=== PATIENT | female | born 1970 | race Hispanic/Latino ===

== ENCOUNTER 2017-02-22 06:19 | Day surgery (SDC) | payer OTHER ==
[2017-02-01 07:58] VITALS: BMI 21.7
[2017-02-22] MEDS ORDERED: Bupivacaine 0.5% Inj(30mL) ONE (07:13)
[2017-02-22] MEDS ORDERED: Propofol 10 mg/ml Inj (20 ML) ONE (07:46)
[2017-02-22] MEDS ORDERED: Midazolam 2 MG/2 ML VIAL ONE (07:46)
[2017-02-22] MEDS ORDERED: Bacitracin 500 Units/gm Oint Foilpak UD ONE (08:36)
[2017-02-22] MEDS ORDERED: HYDROmorphone 0.5 mg/0.5 ml ISec IVP PRN (08:48)
[2017-02-22] MEDS ORDERED: Sodium Chloride 0.9% 1,000 ML IV SCH (09:00)
--- NOTE | 2017-02-22 09:09 | PCM.SURG1 ---
Surgeon's Initial Post Op Note - Surgeon's Notes Surgeon: Paulino Culinary Chef: PGY3 Type of Anesthesia: General Endo Pre-Operative Diagnosis: R breast fibroadenoma, mastodynia Operative Findings: R breast mass Post-Operative Diagnosis: R breast fibroadenoma, mastodynia, alopecia Operation Performed: R partial mastectomy, Scalp biopsy Specimen/Specimens Removed: R breast mass, scalp biopsy, wound culture Estimated Blood Loss: EBL {In ML}: 10 Blood Products Given: N/A Drains Used: [place] (red rubber catheter drain, R breast) Post-Op Condition: Good Date of Surgery/Procedure: 02/22/17 Time of Surgery/Procedure: 07:30
[2017-02-22] MEDS ORDERED: HYDROmorphone 0.5 mg/0.5 ml ISec ONE (09:32)
[2017-02-22] MEDS ORDERED: HYDROmorphone 0.5 mg/0.5 ml ISec IVP ONE (09:33)
[2017-02-22 10:15] VITALS: BP 130/61; PULSE 54; RESP 20; TEMP 97.7; O2SAT 98
--- NOTE | 2017-03-10 15:08 | PCM.OP ---
Operative Report - Operative Report Date of Surgery/Procedure: 02/22/17 Time of Surgery/Procedure: 00:00 Surgeon: Antony Bob MD Mortgage Advisor: Damon Fuchs DO PGY2 Anesthesia/Sedation: Anesthesiology: Dr. Almanza Pre-Operative Diagnosis: Right Breast Fibroadenoma - fibrocystic disease ( mastodynia). Alopecia. 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 She sounded like every imaging study was found to have only benign disease. One of these findings was a fibroadenoma and another was enlarging new fibrocystic breast disease. The patient is completely unsatisfied with all the recommendations that she's had so far by surgeons and requests this surgeon to remove the painful area. . The patient was initially seen by Dr. Rema Rocha and this patient has a long history of extreme anxiety regarding her medical conditions which in the past have included pulminary fibrosis, chronic back pain (implanted stimulator), and chest wall pain relieved with a local injection. . Extensive discussion was held with the patient after review of all her imaging studies explaining that she does not have a malignancy and does not need to have her breast removed, only a partial removal of the ductal system including the fibroadenoma. The lymph node in the axilla is totally benign in appearance and is less than 1 cm in size and is only mildly in tender and is not in any way suspicious. Multiple phone calls were held with the patient prior to surgery. Reassurance was given at each time regarding this situation. . Patient has been advised that her pain will dissapear after the procedure and she will not have to have further treatment following this abd has been completely reassured of her anxieties in this issue at this time. Operative Findings: incarc hernia Procedure/Operation Description: Right Partial Mastectomy. Scalp Biopsy. Patient is brought to the operating room and identified by her wristband. She undergoes time out procedure and confirmation of the surgical site marking on the right breast just above the areola from 9 o'clock to 3 o'clock cephalad. . Following the induction of general anesthesia and insertion of an intralaryngeal mask, sequential compression devices were placed on the patient' s lower extremities. The right breast and chest wall are prepped with hibiclens chlorhexidine preparation of the patient. Upper areola edge in infiltrated with bupivacaine 0.5% ( 18 ccs). Circumareolar incision is made sharp dissection through subcutaneous tissues down breast tissue below. Wide local incision made of anterior breast tissue and ductal system point of pt discomfort. Hemostasis is contained with Electrocoagulation Caudery. Area is widen removing removing fibrocystic disease with extensive ductal distention and engorgement. Cultures taken of duct with creamy whitish content. Specimen completely remove area palpated & absent of any lesion. Specimen is placed in formon for permanent section analysis. Breast incision is review by surgeon's index finger, no additional lesions are encountered at particular point. . Normal Saline solution will be used until hemostasis contained with ECC. The skin is closed with subcutaneous with 3-0 prolene absorbed sutures, as well as 0 silk sutures skin stapler #8 red rubber catheter inserted into the incision secured to the split dressing with skin camden will be removed one 1st postoperative day by pt. Drain will facilitate any accumulation fluids and improve the wound healing. Dry dressing is placed over pts head with attention to the scalp. . Pt complains abouts hair loss (6 months) and requests Histopathologic skin biopsy to evaluation. Scalp in midline vertex and prepared with cleans infiltrated with bupivacaine skin biopsy taken tissue removed for pathologic evaluation. Betadine ointment inserted into incision pt awaken and transferred to recovery in good condition. . entry level assistant manager was present during entire procedure Estimated Blood Loss: Minimal Blood Replaced: 0 Sponge/Instrument Count: ok Drains: no Complications: None Specimen: hernia-omentum Discharge & Condition: pt awaken and transferred to recovery in good condition.
== END 2017-02-22 11:45 | disposition home or self-care (01) ==
LOC: SDS 06:19
PROVIDERS: ATTEND Surgery
DX: D24.1 Benign neoplasm of right breast (principal); J43.9 Emphysema, unspecified; J84.10 Pulmonary fibrosis, unspecified; L65.9 Nonscarring hair loss, unspecified; N64.4 Mastodynia; N60.11 Diffuse cystic mastopathy of right breast; F41.9 Anxiety disorder, unspecified; G89.29 Other chronic pain; M54.9 Dorsalgia, unspecified
CPT/HCPCS: 11100; 19301; 36415; 86850; 86900; 87070; 87075; 88305; 88307; J0690; J1100; J1170; J2001; J2250; J2405; J2704; J2765; J3010; J7040; J7120

== ENCOUNTER 2017-04-24 09:11 | Observation (INO) | payer OTHER ==
--- NOTE | 2017-04-24 10:21 | ED PDOC ---
Arrival/HPI - General Chief Complaint: Chest Pain Time Seen by Provider: 04/24/17 09:12 Historian: Patient - History of Present Illness Narrative History of Present Illness (Text): 04/24/17 09:45 Patient is a 47 year old female presents to the Emergency Department complaining of left sided chest pain. Patient states that two nights ago she awoke with "squeezing" sensation in her left chest. Pain was not pleuritic. Pain did not radiate to neck or arm or back. She went to see her PMD Dr. Rocha that day, reportedly she had EKG performed and pain resolved. She states that this morning she again felt left sided chest discomfort, similar to 2 days ago. She denies associated shortness of breath. Symptoms occurred at rest. Denies headache. Denies neck pain. Denies back pain. Denies abdominal pain. Denies nausea or vomiting or sweats. Denies leg pain or swelling. She denies ever having similar symptoms in the past. PMD: Dr. Rocha Time/Duration: Other (last night) Symptom Onset: Sudden Symptom Course: Unchanged Quality: Other (squeezing pain) Context: Home Past Medical History - Provider Review Nursing Documentation Reviewed: Yes - Infectious Disease Hx of Infectious Diseases: None - Tetanus Immunization Tetanus Immunization: Up to Date - Reproductive Menopause: No - Cardiac Hx Pacemaker: No - Pulmonary Hx Asthma: Yes Other/Comment: pulmonary fibrosis - Neurological Hx Paralysis: No - HEENT Hx HEENT Disorder: No - Renal Hx Renal Disorder: No - Endocrine/Metabolic Hx Endocrine Disorders: No Hx Diabetes Mellitus Type 2: Yes Other/Comment: Steroid induced hyperglycemia. - Hematological/Oncological Hx Blood Transfusions: No Hx Blood Transfusion Reaction: No - Integumentary Hx Dermatological Disorder: No - Musculoskeletal/Rheumatological Hx Musculoskeletal Disorders: No ("BULGING RIBS") - Gastrointestinal Hx Gastroesophageal Reflux: Yes - Genitourinary/Gynecological Hx Genitourinary Disorders: No Other/Comment: bladder neuro stimulator - Psychiatric Hx Psychophysiologic Disorder: Yes Hx Anxiety: Yes Hx Emotional Abuse: No Hx Post Traumatic Stress Disorder: Yes (from misdiagnosed lung dis) Hx Physical Abuse: No Hx Substance Use: No Other/Comment: PT was told of mis diagnosed lung disease on 09/2015. She had been tx for it since 1998 and had chemo on 1999. - Surgical History Other/Comment: right breast mastectomy - Anesthesia Hx Anesthesia: Yes Hx Anesthesia Reactions: Yes (NAUSEA, STATES NEEDS ZOFRAN) Hx Malignant Hyperthermia: No - Suicidal Assessment Feels Threatened In Home Enviroment: No Family/Social History - Physician Review Nursing Documentation Reviewed: Yes Family/Social History: CAD/IN (granparents and aunt) Smoking Status: Never Smoked Hx Alcohol Use: No Hx Substance Use: No Hx Substance Use Treatment: No Allergies/Home Meds Allergies/Adverse Reactions: Allergies No Known Allergies Allergy (Verified 04/24/17 09:29) Home Medications: Home Meds Medication Instructions Recorded Confirmed Escitalopram [Lexapro] 10 mg PO DAILY 09/21/16 04/24/17 busPIRone [Buspar] 10 mg PO DAILY 09/21/16 04/24/17 Lansoprazole [Prevacid] 30 mg PO DAILY 04/24/17 04/24/17 Review of Systems - Review of Systems Constitutional: absent: Fatigue, Fevers Eyes: absent: Vision Changes ENT: absent: Hearing Changes Respiratory: absent: SOB, Cough Cardiovascular: Chest Pain (left-side non-pleuritic chest pain), Palpitations. absent: Edema, BECERRA Gastrointestinal: absent: Abdominal Pain, Food Intolerance (heavy swallowing of food) Genitourinary Female: absent: Dysuria, Frequency Musculoskeletal: absent: Back Pain, Neck Pain Skin: absent: Rash Neurological: absent: Headache, Dizziness, Focal Weakness Psychiatric: Anxiety. absent: Depression, Suicidal Ideation Physical Exam - Physical Exam Narrative Physical Exam (Text): 04/24/17 09:49 Head: Atraumatic. Normocephalic. Eyes: PERRL. EOMI. Conjunctivae are not pale. ENT: Mucous membranes are moist and intact. Oropharynx is clear and symmetric. Neck: Supple. Full ROM. No JVD. No lymphadenopathy. No meningeal signs. Cardiovascular: Regular rate. Regular rhythm. No murmurs, rubs, or gallops. Distal pulses are 2+ and symmetric. No palpable chest wall pain. Pulmonary/Chest: No evidence of respiratory distress. Clear to auscultation bilaterally. No wheezing, rales or rhonchi. Abdominal: Soft and non-distended. Mild epigastric discomfort. No pulsatile masses. Negative Quiles's sign. No rebound, guarding, or rigidity. No organomegaly. Good bowel sounds. Back: No CVA tenderness. Extremities: No edema. No cyanosis. No clubbing. Full range of motion in all extremities. No calf tenderness. NV intact. Full range of motion of hip, knee and ankle. Skin: Skin is warm and dry. No petechiae. No purpura. No vesicular rash. Neurological: Alert, awake, and oriented to person, place, time, and situation. Normal speech. Motor and sensory intact. Psychiatric: Anxiety, no suicidal ideation expressed. Vital Signs Reviewed: Yes Vital Signs Temp Pulse Pulse Resp BP BP Pulse Ox 04/24/17 09:50 67 158/62 H 04/24/17 09:30 97.9 F 57 L 16 136/59 L 100 04/24/17 09:17 98.2 F 65 19 106/65 98 Temperature: Afebrile Blood Pressure: Normal Pulse: Regular Respiratory Rate: Normal Appearance: Positive for: Well-Appearing Pain Distress: Mild Mental Status: Positive for: Alert and Oriented X 3 Medical Decision Making ED Course and Treatment: 04/24/17 09:53 Impression: 47 year old female with left-side chest discomfort intermittent for past 2-3 days. Differential Diagnosis included but are not limited to: CAD vs. Reflux vs. Anxiety Plan: -- EKG -- Chest X-ray -- Labs -- Reassess and disposition Prior Visits: Notes and results from previous visits were reviewed. Patient was last seen in the emergency department on 03/24/2016 FOR acute onset dizziness and lethargy. Patient was admitted. Progress Notes: Patient's past imaging studies including chest xray and prior ct chest were reviewed. She has strong family history of cad/mi as per her history. Initial EKG unremarkable with no acute st elevations noted. Pain occurred at rest, currently not worse with exertion. Nonsmoker. No calf pain. No recent travel. Denies OCPs. Denies prolonged immobilization. Pain not pleuritic. No hypoxia. BP and pulse equal in both upper extremities. No calf pain noted. 04/24/2017 10:42 Chest X-ray FINDINGS: LUNGS: No active pulmonary disease. PLEURA: No significant pleural effusion identified, no pneumothorax apparent. CARDIOVASCULAR: Normal. OSSEOUS STRUCTURES: Dextroscoliosis unchanged VISUALIZED UPPER ABDOMEN: Normal. OTHER FINDINGS: None. IMPRESSION: No active disease. Dictator : David Barrios MD 04/24/17 11:59 Patient still experiencing persistent mild chest discomfort. EKG and first set of cardiac enzymes unremarkable. Due to strong family history of CAD/IN and persistent pain, patient will be admitted to telemetry observation. Case discussed with Dr. Colon whom is covering for her PMD (Dr. Rocha). Initial troponin unremarkable. Treatment plan reviewed with patient, agreeable to observation telemetry admission. - Lab Interpretations Lab Results: 04/24/17 10:25 04/24/17 10:25 Lab Results 04/24/17 10:25: Sodium 140, Potassium 4.6, Chloride 105, Carbon Dioxide 27, Anion Gap 13, BUN 14, Creatinine 0.6, Est GFR ( Amer) > 60, Est GFR (Non- Af Amer) > 60, Random Glucose 109, Calcium 9.3, Total Bilirubin 0.8, AST 23, ALT 27, Alkaline Phosphatase 85, Lactate Dehydrogenase 369, Total Creatine Kinase 47, Troponin I < 0.01, Total Protein 7.1, Albumin 4.3, Globulin 2.8, Albumin/Globulin Ratio 1.5 04/24/17 10:25: PT 10.1, INR 0.94, APTT 26.2 04/24/17 10:25: WBC 5.2 D, RBC 4.71, Hgb 14.8, Hct 42.7, MCV 90.7, MCH 31.4, MCHC 34.7, RDW 12.3, Plt Count 264, MPV 10.5, Gran % 62.0, Lymph % (Auto) 28.7, Posey % (Auto) 7.2 H, Eos % (Auto) 1.7, Baso % (Auto) 0.4, Gran # 3.20, Lymph # 1.5, Posey # 0.4, Eos # 0.1, Baso # 0.02 I have reviewed the lab results: Yes - RAD Interpretation Radiology Orders: 04/24/17 09:53 CHEST PORTABLE [RAD] Stat - EKG Interpretation EKG Interpretation (Text): EKG at 0932 sinus bradycardia rate of [address] elevations Interpreted by ED Physician: Yes Type: 12 lead EKG - Medication Orders Current Medication Orders: Acetaminophen (Tylenol 325mg Tab) 650 mg PO Q6H PRN PRN Reason: Pain, Mild (1-3) Buspirone HCl (Buspar) 10 mg PO HS XIOMARA PRN Reason: Protocol Escitalopram Oxalate (Lexapro) 10 mg PO DAILY XIOMARA Oxycodone/Acetaminophen (Percocet 10/325 Mg Tab) 1 tab PO Q6H PRN PRN Reason: Pain, moderate (4-7) Pantoprazole Sodium (Protonix Ec Tab) 40 mg PO ACB XIOMARA Discontinued Medications Aspirin (Aspirin Chewable) 81 mg PO STAT STA Stop: 04/24/17 12:04 Last Admin: 04/24/17 12:53 Dose: 81 mg Buspirone HCl (Buspar) 10 mg PO DAILY XIOMARA PRN Reason: Protocol Last Admin: 04/24/17 17:14 Dose: Not Given Non-Admin Reason: Patient Refused Famotidine (Pepcid) 20 mg IVP STAT STA Stop: 04/24/17 12:04 Last Admin: 04/24/17 12:55 Dose: - Scribe Statement The provider has reviewed the documentation as recorded by the Ana Og Provider Scribe Attestation: All medical record entries made by the Cristinoibadriane were at my direction and personally dictated by me. I have reviewed the chart and agree that the record accurately reflects my personal performance of the history, physical exam, medical decision making, and the department course for this patient. I have also personally directed, reviewed, and agree with the discharge instructions and disposition. Disposition/Present on Arrival - Present on Arrival Any Indicators Present on Arrival: Yes History of DVT/PE: No History of Uncontrolled Diabetes: Yes Urinary Catheter: No History of Decub. Ulcer: No History Surgical Site Infection Following: None - Disposition Have Diagnosis and Disposition been Completed?: Yes Diagnosis: Chest pain Disposition: HOSPITALIZED Disposition Time: 11:05 Patient Plan: Admission, Observation, Telemetry Patient Problems: Current Active Problems Problem Status Onset Chest pain Acute Condition: FAIR
--- NOTE | 2017-04-24 10:44 | RAD ---
HISTORY: chest pain COMPARISON: Comparison made with chest radiograph and CT scan chest dated 02/01/2017 and 03/10/2017 respectively FINDINGS: LUNGS: No active pulmonary disease. PLEURA: No significant pleural effusion identified, no pneumothorax apparent. CARDIOVASCULAR: Normal. OSSEOUS STRUCTURES: Dextroscoliosis unchanged VISUALIZED UPPER ABDOMEN: Normal. OTHER FINDINGS: None. IMPRESSION: No active disease.
[2017-04-24 10:47] LABS: ALB/GLOB RATIO 1.5 (1.1-1.8); ALKALINE PHOSPHATASE 85 U/L (38-133); ALT/SGPT 27 U/L (7-56); AST/SGOT 23 U/L (15-39); BASO # 0.02 K/mm3 (0.0-2.0); BASO % 0.4 % (0.0-3.0); BILIRUBIN,TOTAL 0.8 mg/dL (0.2-1.3); BLOOD UREA NITROGEN 14 mg/dL (7-21); CALCIUM 9.3 mg/dL (8.4-10.5); CARBON DIOXIDE 27 mmol/L (21-33); CHLORIDE 105 mmol/L (98-107); EOS # 0.1 (0.0-0.7); EOS % 1.7 % (1.5-5.0); GFR AFRICAN-AMERICAN > 60; GLUCOSE,RANDOM 109 mg/dL (70-110); GRAN # 3.2 (1.4-6.5); HEMATOCRIT 42.7 % (36.0-48.0); LYMPH # 1.5 (1.2-3.4); LYMPH % 28.7 % (22.0-35.0); MEAN CELL VOLUME 90.7 fl (80.0-105.0); MEAN CORPUSCULAR HEMOGLOBIN 31.4 pg (25.0-35.0); MEAN CORPUSCULAR HGB CONC 34.7 g/dl (31.0-37.0); MEAN PLATELET VOLUME 10.5 fl (7.0-11.0); MONO # 0.4 (0.1-0.6); MONO % 7.2 % (1.0-6.0); POTASSIUM 4.6 mmol/L (3.6-5.0); RED CELL DISTRIBUTION WIDTH 12.3 % (11.5-14.5); SODIUM 140 mmol/L (132-148); TOTAL PROTEIN 7.1 g/dL (5.8-8.3); WHITE BLOOD COUNT 5.2 10^3/ul (4.5-11.0)
[2017-04-24 10:49] LABS: INR 0.94 (0.93-1.08); PARTIAL THROMBOPLASTIN TIME 26.2 Seconds (23.7-30.8)
[2017-04-24 10:57] LABS: TROPONIN I < 0.01 ng/mL
[2017-04-24 15:28] VITALS: BMI 20.7
[2017-04-24] MEDS ORDERED: Oxycodone/Acetaminophen 10/325 mg Tab PO PRN (16:34)
--- NOTE | 2017-04-24 16:50 | CP.PCM.HP ---
History of Present Illness - History of Present Illness History of Present Illness: Ms. Parker is a 47 year old female who presented to ED with left sided chest pain. No radiation. She saw her PCP Dr. Rocha who advised her cardiac consultation and cardiac stress test. She was not able to get it done yet. She has history of anxiety and PTSD. She had partial right sided mastectomy for benign lesions. No abdominal pain. Present on Admission - Present on Admission Any Indicators Present on Admission: No Review of Systems - Constitutional Constitutional: As Per HPI - EENT Eyes: As Per HPI. absent: Blind Spots, Blurred Vision, Change in Vision, Decreased Night Vision, Diplopia, Discharge, Dry Eye, Exophthalmos, Floaters, Irritation, Itchy Eyes, Loss of Peripheral Vision, Pain, Photophobia, Requires Corrective Lenses, Sees Flashes, Spots in Vision, Tunnel Vision, Other Visual Disturbances, Loss of Vision, Other Ears: absent: As Per HPI, Decreased Hearing, Ear Discharge, Ear Pain, Tinnitus, Abnormal Hearing, Disequilibrium, Dizziness, Other Nose/Mouth/Throat: absent: As Per HPI, Epistaxis, Nasal Congestion, Nasal Discharge, Nasal Obstruction, Nasal Trauma, Nose Pain, Post Nasal Drip, Sinus Pain, Sinus Pressure, Bleeding Gums, Change in Voice, Dental Pain, Dry Mouth, Dysphagia, Halitosis, Hoarsness, Lip Swelling, Mouth Lesions, Mouth Pain, Odynophagia, Sore Throat, Throat Swelling, Tongue Swelling, Facial Pain, Neck Pain, Neck Mass, Other - Breasts Breasts: As Per HPI - Cardiovascular Cardiovascular: As Per HPI - Respiratory Respiratory: absent: As Per HPI, Cough, Dyspnea, Hemoptysis, Dyspnea on Exertion , Wheezing, Snoring, Stridor, Pain on Inspiration, Chest Congestion, Excessive Mucous Production, Change in Mucous Color, Pain with Coughing, Other - Gastrointestinal Gastrointestinal: absent: As Per HPI, Abdominal Pain, Belching, Bloating, Change in Bowel Habits, Change in Stool Character, Coffee Ground Emesis, Constipation, Cramping, Diarrhea, Dyspepsia, Dysphagia, Early Satiety, Excessive Flatus, Fecal Incontinence, Heartburn, Hematemesis, Hematochezia, Loose Stools, Melena, Nausea, Odynophagia, Temesmus, Vomiting, Other - Genitourinary Genitourinary: absent: As Per HPI, Change in Urinary Stream, Difficulty Urinating, Dysuria, Flank Pain, Hematuria, Pyuria, Nocturia, Urinary Incontinence, Urinary Frequency, Urinary Hesitance, Urinary Urgency, Voiding Freq/Small Amts, Freq UTI, Hx Renal/Bladder Calculi, Hx /Renal Surgery, Bladder Distension, Other - Menstruation Menstruation: absent: As Per HPI, Amenorrhea, Amenorrhea/ Control, Currently Menstual, Cycle <21 Days, Cycle >35 Days, Cycle Variable, Menses 1-7 Days, Menses >/= 8 Days, Menses Variable, Cycle > 4 Weeks Between, No Menses for 6 Months, Heavy Menses, Light Menses, Normal Menses, Spotting Between Cycles , S/P Hysterectomy, Menopausal, Post Menopausal, Premenarche, Abnormal Vaginal Bleeding, Dysmenorrhea, Other - Musculoskeletal Musculoskeletal: absent: As Per HPI, Abnormal Gait, Arthralgias, Atrophy, Back Pain, Deformity, Joint Swelling, Limited Range of Motion, Loss of Height, Muscle Cramps, Muscle Weakness, Myalgias, Neck Pain, Numbness, Radiating Pain into Limb, Stiffness, Tingling, Other - Integumentary Integumentary: absent: As Per HPI, Acne, Alopecia, Bleeding Lesions, Change in Hair, Change in Nails, Change in Pigmentation, Changing Lesions, Dry Skin, Erythema, Furuncle, Hirsutism, Lesions, New Lesions, Non-Healing Lesions, Photosensitivity, Pruritus, Rash, Skin Pain, Skin Ulcer, Sores, Striae, Swelling , Unusual Bruising, Wounds, Jaundice, Other - Neurological Neurological: absent: As Per HPI, Abnormal Gait, Abnormal Hearing, Abnormal Movements, Abnormal Speech, Behavioral Changes, Burning Sensations, Confusion, Convulsions, Disequilibrium, Dizziness, Numbness, Focal Weakness, Frequent Falls , Headaches, Lack of Coordination, Loss of Vision, Memory Loss, Paresthesias, Radicular Pain, Restless Legs, Sensory Deficit, Syncope, Tingling, Tremor, Vertigo, Weakness, Other Visual Disturbances, Other - Psychiatric Psychiatric: As Per HPI - Endocrine Endocrine: absent: As Per HPI, Change in Body Appearance, Change in Libido, Cold Intolorance, Deepening of Voice, Excessive Sweating, Fatigue, Flushing, Heat Intolorance, Increase in Ring/Shoe/Hat Size, Palpitations, Polydipsia, Polyphagia, Polyuria, Other - Hematologic/Lymphatic Hematologic: As Per HPI Past Patient History - Infectious Disease Hx of Infectious Diseases: None - Tetanus Immunizations Tetanus Immunization: Up to Date - Past Medical History & Family History Past Medical History?: Yes Past Family History: Reviewed and not pertinent - Past Social History Smoking Status: Never Smoked - CARDIAC Hx Pacemaker: No - PULMONARY Hx Asthma: No (denies) Other/Comment: diagnosed lung disease (pulmo fibrosis) in 1998; found out that it was a misdiagnosis 09/2015 - NEUROLOGICAL Hx Paralysis: No - HEENT Other/Comment: left eye visual impairment - RENAL Hx Chronic Kidney Disease: No - ENDOCRINE/METABOLIC Other/Comment: steroid-induced hyperglycemia - HEMATOLOGICAL/ONCOLOGICAL Hx Cancer: (h/o right breast partial mastectomy) Hx Chemotherapy: Yes (1999) - INTEGUMENTARY Hx Dermatological Problems: No - MUSCULOSKELETAL/RHEUMATOLOGICAL Hx Falls: No - GASTROINTESTINAL Hx Gastroesophageal Reflux: Yes - GENITOURINARY/GYNECOLOGICAL Hx Hematuria: Yes Hx Urinary Tract Infection: Yes - PSYCHIATRIC Hx Anxiety: Yes Hx Depression: Yes Hx Panic Symptoms: Yes (Panic Disorder) Hx Post Traumatic Stress Disorder: Yes Hx Substance Use: No - SURGICAL HISTORY Hx Hysterectomy: Yes Hx Mastectomy: Yes (right breast partial mastectomy) - ANESTHESIA Hx Anesthesia: Yes Hx Anesthesia Reactions: Yes (NAUSEA, STATES NEEDS ZOFRAN) Hx Malignant Hyperthermia: No Meds Allergies/Adverse Reactions: Allergies Allergy/AdvReac Type Severity Reaction Status Date / Time No Known Allergies Allergy Verified 04/24/17 09:29 Physical Exam - Constitutional Appears: Well, Non-toxic - Head Exam Head Exam: ATRAUMATIC, NORMAL INSPECTION, NORMOCEPHALIC - Eye Exam Eye Exam: Normal appearance - ENT Exam ENT Exam: absent: Mucous Membranes Dry, Mucous Membranes Moist, Normal Exam, Normal External Ear Exam, Normal Oropharynx, TM's Normal Bilaterally - Neck Exam Neck exam: Positive for: Normal Inspection - Respiratory Exam Respiratory Exam: Clear to Auscultation Bilateral, NORMAL BREATHING PATTERN - Cardiovascular Exam Cardiovascular Exam: REGULAR RHYTHM, +S1, +S2 - GI/Abdominal Exam GI & Abdominal Exam: Normal Bowel Sounds - Extremities Exam Extremities exam: Positive for: normal inspection - Psychiatric Exam Psychiatric exam: Normal Affect, Normal Mood - Skin Skin Exam: Dry, Intact, Normal Color Results - Vital Signs Recent Vital Signs: Last Vital Signs Temp 98.2 F 04/24/17 15:04 Pulse 63 04/24/17 15:04 Resp 18 04/24/17 15:04 BP 142/50 L 04/24/17 15:04 Pulse Ox 100 04/24/17 09:30 - Labs Result Diagrams: 04/24/17 10:25 04/24/17 10:25 Assessment & Plan - Assessment and Plan (Free Text) Plan: 1. Chest pain left side : admit tele. cardiac enzymes monitoring . Cardiology consult Dr. Howard. EKG normal. First set cardiac enzymes normal. protonix daily. 2. Anxiety : lexapro 10 mg daily, 3. serial ardiac enzymes ordered. 4. Heme : monocytosis ; Hb/hct stable. 5. Renal : BUN, creatinine normal. discharge planning for tomorrow.
[2017-04-24 17:42] LABS: TROPONIN I < 0.01 ng/mL
--- NOTE | 2017-04-24 21:05 | CARD ---
APPROVED REPORT EKG Measurement Heart [id number] <Conclusion> Sinus bradycardia Otherwise normal ECG
--- NOTE | 2017-04-24 21:42 | CP.PCM.PN ---
Subjective - Date & Time of Evaluation Date of Evaluation: 04/24/17 Time of Evaluation: 21:51 - Subjective Subjective: Patient was seen at bedside. Has no complaints now. Had heaviness in chest a few minutes ago 11/05. Now 0. Had no other complaints. She had EKG done and I was called to read this EKG. EKG shows Sinus bradycardia(Borderline) not significantly different than previous EKG. Medical record was reviewed. This 47 year old woman was admitted with left sided chest pain. Has PMH of PTSD, anxiety, steroid induced hyperglycemia, misdiagnosis of pulmonary fibrosis, right breast partial mastectomy, left eye visual impairment. Objective - Vital Signs/Intake and Output Vital Signs (last 24 hours): Temp Pulse Resp BP Pulse Ox 98.7 F 62 20 128/61 100 04/24/17 17:32 04/24/17 18:00 04/24/17 17:32 04/24/17 17:32 04/24/17 09:30 - Medications Medications: Current Medications Acetaminophen (Tylenol 325mg Tab) 650 mg PO Q6H PRN PRN Reason: Pain, Mild (1-3) Buspirone HCl (Buspar) 10 mg PO HS XIOMARA PRN Reason: Protocol Escitalopram Oxalate (Lexapro) 10 mg PO DAILY XIOMARA Oxycodone/Acetaminophen (Percocet 10/325 Mg Tab) 1 tab PO Q6H PRN PRN Reason: Pain, moderate (4-7) Pantoprazole Sodium (Protonix Ec Tab) 40 mg PO ACB XIOMARA - Labs Labs: PT 10.1 Seconds (9.9-11.8) 04/24/17 10:25 INR 0.94 (0.93-1.08) 04/24/17 10:25 APTT 26.2 Seconds (23.7-30.8) 04/24/17 10:25 Laboratory Last Values WBC 5.2 10^3/ul (4.5-11.0) D 04/24/17 10:25 RBC 4.71 10^6/uL (3.5-6.1) 04/24/17 10:25 Hgb 14.8 g/dL (12.0-16.0) 04/24/17 10:25 Hct 42.7 % (36.0-48.0) 04/24/17 10:25 MCV 90.7 fl (80.0-105.0) 04/24/17 10:25 MCH 31.4 pg (25.0-35.0) 04/24/17 10:25 MCHC 34.7 g/dl (31.0-37.0) 04/24/17 10:25 RDW 12.3 % (11.5-14.5) 04/24/17 10:25 Plt Count 264 10^3/uL (120.0-450.0) 04/24/17 10:25 MPV 10.5 fl (7.0-11.0) 04/24/17 10:25 Gran % 62.0 % (50.0-68.0) 04/24/17 10:25 Lymph % (Auto) 28.7 % (22.0-35.0) 04/24/17 10:25 Grady % (Auto) 7.2 % (1.0-6.0) H 04/24/17 10:25 Eos % (Auto) 1.7 % (1.5-5.0) 04/24/17 10:25 Baso % (Auto) 0.4 % (0.0-3.0) 04/24/17 10:25 Gran # 3.20 (1.4-6.5) 04/24/17 10:25 Lymph # 1.5 (1.2-3.4) 04/24/17 10:25 Grady # 0.4 (0.1-0.6) 04/24/17 10:25 Eos # 0.1 (0.0-0.7) 04/24/17 10:25 Baso # 0.02 K/mm3 (0.0-2.0) 04/24/17 10:25 PT 10.1 Seconds (9.9-11.8) 04/24/17 10:25 INR 0.94 (0.93-1.08) 04/24/17 10:25 APTT 26.2 Seconds (23.7-30.8) 04/24/17 10:25 Sodium 140 mmol/L (132-148) 04/24/17 10:25 Potassium 4.6 mmol/L (3.6-5.0) 04/24/17 10:25 Chloride 105 mmol/L (98-107) 04/24/17 10:25 Carbon Dioxide 27 mmol/L (21-33) 04/24/17 10:25 Anion Gap 13 (10-20) 04/24/17 10:25 BUN 14 mg/dL (7-21) 04/24/17 10:25 Creatinine 0.6 mg/dL (0.5-1.4) 04/24/17 10:25 Est GFR ( Amer) > 60 04/24/17 10:25 Est GFR (Non-Af Amer) > 60 04/24/17 10:25 Random Glucose 109 mg/dL (70-110) 04/24/17 10:25 Calcium 9.3 mg/dL (8.4-10.5) 04/24/17 10:25 Total Bilirubin 0.8 mg/dL (0.2-1.3) 04/24/17 10:25 AST 23 U/L (15-39) 04/24/17 10:25 ALT 27 U/L (7-56) 04/24/17 10:25 Alkaline Phosphatase 85 U/L (38-133) 04/24/17 10:25 Lactate Dehydrogenase 372 U/L (333-699) 04/24/17 17:00 Total Creatine Kinase 42 U/L (35-230) 04/24/17 17:00 Troponin I < 0.01 ng/mL 04/24/17 17:00 Total Protein 7.1 g/dL (5.8-8.3) 04/24/17 10:25 Albumin 4.3 g/dL (3.0-4.8) 04/24/17 10:25 Globulin 2.8 gm/dL 04/24/17 10:25 Albumin/Globulin Ratio 1.5 (1.1-1.8) 04/24/17 10:25 - Constitutional Appears: Well, No Acute Distress - Head Exam Head Exam: ATRAUMATIC, NORMAL INSPECTION, NORMOCEPHALIC - Eye Exam Eye Exam: Normal appearance - ENT Exam ENT Exam: Normal External Ear Exam - Neck Exam Neck Exam: Normal Inspection - Respiratory Exam Respiratory Exam: NORMAL BREATHING PATTERN - Cardiovascular Exam Cardiovascular Exam: absent: JVD - GI/Abdominal Exam GI & Abdominal Exam: absent: Distended - Rectal Exam Rectal Exam: Deferred - Exam Additional comments: Deferred. - Extremities Exam Extremities Exam: Normal Inspection - Back Exam Back Exam: NORMAL INSPECTION - Neurological Exam Neurological Exam: Alert, Oriented x3 - Psychiatric Exam Psychiatric exam: Normal Affect, Normal Mood - Skin Skin Exam: Normal Color Assessment and Plan - Assessment and Plan (Free Text) Assessment: Resolved chest heaviness. Sinus bradycardia. Anxiety. PTSD. Breast cancer. S/P chemotherpay. S/P partial mastectomy. Plan: EKG -----> Borderline sinus bradycardia. No acute changes. Observation. Continue present management.
--- NOTE | 2017-04-25 01:32 | CON ---
DATE: 04/24/2017 LOCATION: The patient is in room 261, bed 2. REASON FOR CONSULTATION: Chest pain. HISTORY OF PRESENT ILLNESS: The patient is 47-year-old female with known case of anxiety and PTSD, on BuSpar and Lexapro. Also, known to have acid reflux disease for which she is taking Pepcid daily. The patient states that in the last two nights, each night she had been having heaviness in the middle of the chest and also a second pain, which is a sharp pain and shoots across the chest, only at nighttime. Daytime, she is doing normal activity and does not get any chest pain. A few years ago, she had a cardiac catheterization, which was normal. The patient denies any PND or swelling of legs. PAST MEDICAL HISTORY: The patient recently had partial mastectomy on the right for benign growth and patient known to have anxiety and PTSD, for which she is also seeing a psychiatrist. PERSONAL HISTORY: Denies smoking, denies drinking. ALLERGIES: DENIES ANY ALLERGIES. FAMILY HISTORY: Father and grandparents had coronary artery disease. MEDICATIONS AT HOME: Prevacid 30 mg daily, BuSpar 10 mg daily, Lexapro 10 mg daily. PHYSICAL EXAMINATION: VITAL SIGNS: Blood pressure 128/61, respirations 20, pulse 55, temperature 98.7. HEENT: Head is normocephalic. Eyes, pupils normal. Conjunctivae normal. Nose and throat normal. NECK: JVP low. Carotids equal. Thorax, AP diameter normal. LUNGS: Clear. CARDIOVASCULAR: S1 and S2. ABDOMEN: Soft. nontender. No organomegaly. Bowel sounds are normal. EXTREMITIES: No edema. No calf tenderness. No clubbing. No cyanosis. LABORATORY DATA: WBC 5.2, hemoglobin 14.8, hematocrit 42.7, platelets 264. Sodium 140, potassium 4.6, BUN 14, creatinine 0.6, troponin less than 0.01. AST and ALT normal. Total protein and albumin normal. EKG showed sinus bradycardia, 58 per minute. Chest x-ray; no active disease. DIAGNOSES: Chest pain, most likely acid reflux disease, only happens at night; anxiety; and posttraumatic stress disorder. Recent partial mastectomy for benign growth. PLAN: The patient wants to do the stress test and echo as outpatient. She is scheduled for a stress test outpatient on Tuesday. In the meantime, the patient will continue Protonix 40 daily, BuSpar 10 mg at bedtime. The patient received Pepcid 20 mg IV stat today. We will repeat troponin in the morning and TSH and lipid profile. If during the night patient gets chest pain, I spoke to the nursing staff to do an EKG during the chest pain, which probably will be normal. We will follow with you. Arnol Huizar MD
[2017-04-25 06:44] VITALS: O2SAT 98
[2017-04-25 06:55] LABS: CHOLESTEROL 263 mg/dL (130-200)
[2017-04-25 07:08] LABS: TROPONIN I < 0.01 ng/mL
[2017-04-25] MEDS ORDERED: Pantoprazole 40 mg EC Tab PO SCH (07:30)
[2017-04-25] MEDS ORDERED: Non Formulary Medication (Lansoprazole [Prevacid] 30 MG) PO SCH (10:00)
[2017-04-25 11:52] VITALS: BP 100/63; PULSE 68; RESP 20; TEMP 98.7
--- NOTE | 2017-04-25 15:05 | CARD ---
APPROVED REPORT Protocol: ROB Test Type: Sestamibi Stress Test Attending Physician: Dr. Arnol Huizar Referring Physician: Dr. Rema Rocha Test Indications: Chest Pain Height:5 ft 3 in Weight:121lbs Medications: Tylenol, Lipitor, Buspar, Lexapro, Percocet, Protonix Medical History: 47 y/o female with a history of asthma, anxiety, PTSD, partial right mastectomy Target HR: 174 bpm Resting ECG: RSR. Resting Heart Rate: 77 bpm Resting Blood Pressure: 90/60mmHg Submaximum (85%): 148 bpm POST EXERCISE Reason for Termination: Fatigue. Target HR: No Max HR: 151 bpm 86% of Maximum Predicted HR: 174 bpm Exercise duration: 11:03 min:sec, 4 Stage Exercise capacity: 13.4METs Max Blood Pressure: 130/60mmHg Blood Pressure response to exercise: normal resting BP - appropriate response Heart Rate response to exercise: appropriate Chest Pain: Yes, [place] Chest Pain while on Treadmill. Angina index: 0 Arrhythmia: No, none ST Change: No, none Deviation: 0 mm INTERPRETATION Stress EKG Conclusion: MYOVIEW NUCLEAR STRESS TEST STOPPED AFTER 11 MINUTES AND 3 SCONDS OF ROB PROTOCOL DUE TO FATIGUE AND CHEST PAIN. PATIENT ACHIEVED 86% OF PREDICTED HEART RATE. NO ST-T CHANGES SEEN. NUCLEAR SCAN REPORT PENDING. Signed by Arnol Huizar Electronically Approved: 04/25/2017 13:04:12 EXAM: Myocardial Perfusion REST/STRESS Stress Test Type: Exercise Treadmill Imaging Protocol Rest Spect myocardial perfusion imaging was performed in supine position 45 minutes following the injection of 10.3 mCi of Tc-99 Myoview. At peak stress, the patient was injected intravenously with 30.8mCi of Tc-99 tetrofosmin after an exercise time of 11 minutes and 03 seconds. Gated Stress Spect was performed 80 minutes after intravenous Tc-99 Myoview injection. The images were gated to evaluate regional wall motion and calculate ventricular ejection fraction.Images were reconstructed using backfilter projection method in short horizontal and verticle long axis. Spect slices were generated. LV Perfusion The quality of the study is good. The left ventricle is normal in size. The right ventricle is unremarkable. The lung uptake is normal. The distribution of tracer reveals an area of mildly decreased perfusion in the distal anteroseptal and apical grove on the stress study. The remainder of the LV myocardium is unremarkable. The rest myocardial perfusion study shows no significant change. Wall Motion Wall motion study shows good contractility of the left ventricle. LVEF = 58%. Conclusion 1. Essentially normal SPECT myocardial perfusion study. 2. Fixed, distal anteroseptal/ apical defects are most likely due to breast attenuation. 3. Normal gated wall motion of the left ventricle.
--- NOTE | 2017-04-25 19:06 | CARD ---
APPROVED REPORT EXAM: Two-dimensional and M-mode echocardiogram with Doppler and color Doppler. INDICATION LVFX 2D DIMENSIONS IVSd0.7 (0.7-1.1cm)LVDd3.8 (3.9-5.9cm) PWd0.9 (0.7-1.1cm)LVDs2.8 (2.5-4.0cm) FS (%) 26.1 %LVEF (%)52.0 (>50%) M-Mode DIMENSIONS Aortic Root2.70 (2.2-3.7cm)Aortic Cusp Exc.1.50 (1.5-2.0cm) Aortic Valve AoV Peak Pdrutysb086.0cm/Anneliese Peak GR.6mmHg Mitral Valve MV E Cbbekuzx65.4cm/sMV A Yobazjoa58.3cm/sE/A ratio0.9 TDI Lateral E' Peak V10.90cm/sMedial E' Peak V8.09cm/sE/Lateral E'4.3 E/Medial E'5.9 Pulmonary Valve PV Peak Dufdmlte11.2cm/sPV Peak Grad.4mmHg Tricuspid Valve TR Peak Fmlqkvih321bi/sRAP SZLYHCPT08wlLlVB Peak Gr.22mmHg [id number] LEFT VENTRICLE The left ventricle is normal size. There is normal left ventricular wall thickness. The left ventricular function is normal. The left ventricular ejection fraction is within the normal range. Ej. FR: 53%. RIGHT VENTRICLE The right ventricle is normal size. There is normal right ventricular wall thickness. The right ventricular systolic function is normal. AORTIC VALVE The aortic valve is normal in structure. MITRAL VALVE The mitral valve is normal in structure. Mitral regurgitation is trace. TRICUSPID VALVE The tricuspid valve is normal in structure. There is trace tricuspid regurgitation. RVSP: 32mm Hg. GREAT VESSELS The aortic root is normal in size. PERICARDIAL EFFUSION There is no pericardial effusion. <Conclusion> The left ventricle is normal size. There is normal left ventricular wall thickness. The left ventricular function is normal. The left ventricular ejection fraction is within the normal range. Ej. FR: 53%. The mitral valve is normal in structure. Mitral regurgitation is trace. The tricuspid valve is normal in structure. The aortic valve is normal in structure. There is trace tricuspid regurgitation. RVSP: 32mm Hg.
--- NOTE | 2017-04-25 20:21 | PN ---
DATE: 04/25/2017 LOCATION: The patient in room 261, bed 2. REASON FOR CONSULTATION: Chest pain. SUBJECTIVE: The patient only gets chest pain at night but now she says that this morning also she had chest pain like tight feeling pressure, heaviness in the chest. There were no changes on the EKG at the time she got chest pain, and her cath 1 year ago was negative as per the patient. The patient denies shortness of breath or palpitations. PHYSICAL EXAMINATION: VITAL SIGNS: Blood pressure is 100/63, respirations 20, pulse is 68, and temperature is 98.7. HEENT: Head is normocephalic. Eyes, pupils are normal. Conjunctivae normal. Nose and throat normal. NECK: JVP low. Carotid equal. THORAX: AP diameter normal. LUNGS: Clear. CARDIOVASCULAR: S1 and S2. ABDOMEN: Soft and nontender. No organomegaly. Bowel sounds normal. EXTREMITIES: No clubbing. No cyanosis. LABORATORY DATA: WBC 5.2, hemoglobin 14.8, hematocrit 42.7 and platelet 264. Sodium 140, potassium 4.6, sugar 109. AST and ALT today normal. Protein and albumin normal. Troponin x3 negative. Cholesterol 263, LDL 167, HDL 77. TSH normal. DIAGNOSES: Chest pain, atypical, mostly likely gastrointestinal in origin; gastroesophageal reflux; anxiety; posttraumatic stress disorder; recent partial mastectomy for benign growth. PLAN: Since the patient is complaining again this morning of chest pain, we will do stress test and echo today, and also the patient cholesterol is high at 263. We will put her on Lipitor 20 daily and we will follow with you. Arnol Huizar MD
--- NOTE | 2017-04-25 21:49 | CARD ---
APPROVED REPORT EKG Measurement Heart [id number] HI [id number] [id number] <Conclusion> Sinus bradycardia Otherwise normal ECG
--- NOTE | 2017-05-04 23:29 | DS ---
DATE OF DISCHARGE: 04/25/2017 DISCHARGE DIAGNOSES: 1. Noncardiac chest pain. 2. Anxiety. 3. Anemia. HOSPITAL COURSE: The patient was admitted with chest pain. She was evaluated by cardiology, Dr. Howard. Three sets of cardiac enzymes were negative. She was scheduled for stress test as outpatient. She is currently being discharged in stable condition. Chest pain resolved. PHYSICAL EXAMINATION ON DISCHARGE: GENERAL: Comfortable in bed, in no acute distress. VITAL SIGNS: Temperature 98.7, heart rate is 80 per minute, blood pressure 130/70, respiratory rate 18 per minute and oxygen saturation 90% on room air. HEENT: Head: Atraumatic and normocephalic. Oral mucosa is moist. NECK: Supple. CHEST: Air entry present and equal bilateral. No added sounds. CARDIOVASCULAR: Within normal limits. ABDOMEN: Soft and nontender. No hepatosplenomegaly. EXTREMITIES: No edema. CENTRAL NERVOUS SYSTEM: Alert and oriented x3. No focal sensory or motor deficits. SPINE: Normal. CONDITION ON DISCHARGE: Stable. DISPOSITION: Discharged home. DIET: Regular. ACTIVITY: As tolerated. Myocardial stress test done during the hospitalization prior to discharge, normal study. FOLLOWUP: Followup with Dr. Howard in 1 week. Followup with PCP in 1 week. DISCHARGE MEDICATIONS: Aspirin 81 mg daily, Lipitor 20 mg daily, BuSpar 10 mg daily, Lexapro 10 mg daily, and Percocet p.r.n. for pain. Time spent in preparing discharge and coordinating care 45 minutes. Chacha Colon MD
== END 2017-04-25 15:16 | disposition home or self-care (01) ==
LOC: ED 09:11 → ERH 12:02 → 2RNO 13:29
PROVIDERS: ADMIT Internal Medicine; ATTEND Internal Medicine
DX: K21.9 Gastro-esophageal reflux disease without esophagitis (principal); R07.89 Other chest pain; F43.10 Post-traumatic stress disorder, unspecified; F41.9 Anxiety disorder, unspecified; R00.1 Bradycardia, unspecified; E09.65 Drug or chemical induced diabetes mellitus with hyperglycemia; T38.0X5A Adverse effect of glucocorticoids and synthetic analogues, initial encounter; H54.52 Low vision, left eye, normal vision right eye; Z90.11 Acquired absence of right breast and nipple; C50.919 Malignant neoplasm of unspecified site of unspecified female breast
CPT/HCPCS: 36415; 71010; 78452; 80053; 80061; 82550; 83615; 84443; 84484; 85025; 85610; 85730; 93005; 93017; 93306; 99283; A9502; G0378

== ENCOUNTER 2017-05-11 08:04 | Day surgery (SDC) | payer OTHER ==
[2017-05-06 11:08] VITALS: BMI 21.7
[2017-05-11] MEDS ORDERED: Propofol 10 mg/ml Inj (20 ML) ONE ×2 (08:27→08:55)
[2017-05-11] MEDS ORDERED: Sodium Chloride 0.9% 1,000 ML IV SCH (09:30)
[2017-05-11 09:47] VITALS: O2SAT 100
[2017-05-11 10:18] VITALS: BP 126/56; RESP 18; TEMP 97.6
[2017-05-11 10:43] VITALS: PULSE 65
[2017-05-12] MEDS ORDERED: Bacitracin 500 Units/gm Oint Foilpak UD ONE (15:57)
== END 2017-05-11 11:17 | disposition home or self-care (01) ==
LOC: ENDO 08:04
PROVIDERS: ATTEND Specialist
DX: K21.9 Gastro-esophageal reflux disease without esophagitis (principal); K29.50 Unspecified chronic gastritis without bleeding; R07.89 Other chest pain; K44.9 Diaphragmatic hernia without obstruction or gangrene; E11.9 Type 2 diabetes mellitus without complications; F41.9 Anxiety disorder, unspecified; Z98.51 Tubal ligation status; Z90.710 Acquired absence of both cervix and uterus; Z90.11 Acquired absence of right breast and nipple
CPT/HCPCS: 43239; 88305; 88342; J2001; J2704; J3010; J7040 ×2

== ENCOUNTER 2017-05-12 07:48 | Day surgery (SDC) | payer OTHER ==
[2017-05-06 11:08] VITALS: BMI 21.7
--- NOTE | 2017-05-12 05:09 | HP ---
REASON FOR CONSULTATION: Chest pain, rule out coronary artery disease. BRIEF CLINICAL HISTORY: This is a 47-year-old female with past medical history significant for gastroesophageal reflux, hyperlipidemia, and depression, keeps on complaining of chest pain, multiple visits with Dr. Huizar's office for chest pain, though the patient had a stress test on 04/25/2017, found to be negative, but the patient keeps on complaining of chest pain, so thought that may be false negative stress test. The patient had endoscopy today with Dr. David Euceda and is found to be negative for any gastritis, so the patient is scheduled elective cardiac cath, possible angioplasty. The patient had right heart catheterization many years ago by Dr. Skaggs. PAST MEDICAL HISTORY: Significant for gastroesophageal reflux, multiple admissions with chest pain and ER visits as well as office visits with Dr. Huizar. PREVIOUS CARDIAC WORKUP: As follows, the patient had echocardiography on 04/25/2017, that showed ejection fraction 53%, mitral valve essentially normal, trace mitral regurgitation, trace tricuspid regurgitation, RV systolic pressure 32. The patient had a stress test, myocardial perfusion study dated 04/25/2017 that shows a normal myocardial perfusion study. The patient walked on the treadmill after minutes and 3 seconds Mick protocol due to fatigue and chest pain, the patient achieved 86%. No acute ST-T changes noted, but the patient complained of chest pain, dated 04/25/2017. REVIEW OF SYSTEMS: As per HPI. CURRENT MEDICATIONS: BuSpar 10 mg daily, Prevacid 30 mg daily, Lexapro 10 mg daily, and atorvastatin 20 mg daily. ALLERGIES: NO KNOWN DRUG ALLERGIES. PHYSICAL EXAMINATION: As follows: GENERAL: Height of the patient 5 feet 2 inches, weight of the patient 119, body mass index 21.8 kg/m2. VITAL SIGNS: Temperature afebrile, heart rate 80, blood pressure 120/80. HEENT: PERRLA. Extraocular muscles intact. NECK: Supple. No carotid bruit. No thyromegaly. CHEST: Clear to auscultation. HEART: S1 and S2 regular. ABDOMEN: Soft. EXTREMITIES: Clubbing and cyanosis, negative. LABORATORY DATA: Blood work pending. IMPRESSION: Recurrent chest pain, multiple office visits with Dr. Huizar and chest pain, thought to be false negative stress test, trace mitral regurgitation, trace tricuspid regurgitation, and negative endoscopy today for gastritis. We will give 300 mg Plavix and aspirin. Further recommendation of the cardiac catheterization, we will follow with you. Thank you Dr. Rocha for providing us the opportunity in taking care of the patient, Elena Snyder. Arnol Howard MD
[2017-05-12 08:36] LABS: BASO # 0.04 K/mm3 (0.0-2.0); BASO % 0.8 % (0.0-3.0); EOS # 0.1 (0.0-0.7); EOS % 1.8 % (1.5-5.0); GRAN # 3.24 (1.4-6.5); GRAN % 63.9 % (50.0-68.0); HEMATOCRIT 39.8 % (36.0-48.0); LYMPH # 1.3 (1.2-3.4); MEAN CELL VOLUME 90.5 fl (80.0-105.0); MEAN CORPUSCULAR HEMOGLOBIN 31.6 pg (25.0-35.0); MEAN CORPUSCULAR HGB CONC 34.9 g/dl (31.0-37.0); MEAN PLATELET VOLUME 10.4 fl (7.0-11.0); MONO # 0.4 (0.1-0.6); MONO % 7.5 % (1.0-6.0); RED CELL DISTRIBUTION WIDTH 12.1 % (11.5-14.5); WHITE BLOOD COUNT 5.1 10^3/ul (4.5-11.0)
[2017-05-12 08:42] VITALS: RESP 18
[2017-05-12 08:45] LABS: BLOOD UREA NITROGEN 12 mg/dL (7-21); CALCIUM 9.3 mg/dL (8.4-10.5); CARBON DIOXIDE 30 mmol/L (21-33); CHLORIDE 105 mmol/L (98-107); CHOLESTEROL 164 mg/dL (130-200); GFR AFRICAN-AMERICAN > 60; GLUCOSE,RANDOM 89 mg/dL (70-110); POTASSIUM 4.2 mmol/L (3.6-5.0); SODIUM 143 mmol/L (132-148)
[2017-05-12 08:46] LABS: INR 0.97 (0.93-1.08); PARTIAL THROMBOPLASTIN TIME 26.3 Seconds (23.7-30.8)
[2017-05-12] MEDS ORDERED: Phenylephrine 10 mg/ml Inj ONE (12:18)
[2017-05-12] MEDS ORDERED: Lidocaine 2% Inj (20ml) ONE (12:18)
[2017-05-12] MEDS ORDERED: Nitroglycerin 50mg in D5W 50 MG/250 ML BOTTLE IV ONE (12:19)
[2017-05-12] MEDS ORDERED: Iohexol 350mgl/ml 50 ML ONE (12:19)
[2017-05-12] MEDS ORDERED: Iohexol 350 MG/100 ML VIAL ONE (12:19)
[2017-05-12] MEDS ORDERED: Midazolam 2 MG/2 ML VIAL ONE (12:41)
[2017-05-12] MEDS ORDERED: Bacitracin 500 Units/gm Oint Foilpak UD TOP ONE (13:46)
[2017-05-12] MEDS ORDERED: Sodium Chloride 0.9% 1,000 ML IV SCH (14:00)
--- NOTE | 2017-05-12 14:13 | CARD ---
APPROVED REPORT EKG Measurement Heart [id number] ND [id number] [id number] <Conclusion> Sinus bradycardia Otherwise normal ECG
[2017-05-12 14:24] VITALS: TEMP 97.7
[2017-05-12 15:47] VITALS: PULSE 64
--- NOTE | 2017-05-12 17:10 | CARD ---
APPROVED REPORT Procedure(s) performed: Left Heart Catheterization HISTORY The patient is a 47 year-old female with a history of : diabetes mellitus with oral treatment , previous diagnostic cath, dyslipidemia , Recurrent Chest pain multiple office vistis for chest pain and Negative Endoscopy and recent Stress test was negative for Ischemia. INDICATION The indication(s) include : chest pain, dyspnea. CASE TECHNIQUE The patient was brought electively to the Cardiac Catheterization Laboratory in a fasting state and was prepped and draped in a sterile manner. The left wrist was infiltrated with 2% Lidocaine subcutaneous anesthesia. A 6 Fr Glidesheath (Radial) sheath was inserted into the left radial artery without difficulty. Coronary angiography was performed using coronary diagnostic catheters. The left coronary system was accessed and visualized with a Diagnostic ,5 Fr JL 3.5 catheter. The right coronary system was accessed and visualized with a Diagnostic ,5 Fr JR 3.5 catheter. The left ventricle was accessed and visualized with a 5 Fr Pigtail 145 (Angled) catheter. Left ventricular/Aortic Valve gradient assessed on pullback. Left ventriculogram was performed in [place] projection. The patient tolerated the procedure well and there were no complications associated with the procedure. Vessel Analysis The patient's coronary anatomy is right dominant. The left main coronary artery is a medium size vessel without significant stenosis. The left main bifurcates to the left anterior descending and circumflex. The left anterior descending artery is a medium size vessel without significant stenosis. The first diagonal branch is a small size vessel with diffuse calcification noted throughout this vessel and without significant stenosis. There is a 55% stenosis in the ostial segment. The circumflex artery is a medium size vessel with intimal irregularities. The right coronary artery is a medium size vessel with intimal irregularities. The right posterior descending artery is a medium size vessel without significant stenosis. Left Ventricle The left ventricle is normal in size with normal contractility. There was no cardiomyopathy. The left ventricular ejection fraction is estimated to be 65%. The left ventricular end diastolic pressure is 15 mmHg. There was no gradient across the aortic valve upon pullback. Conclusion Non obstructive CAD,limited to D1 ostial 55%. Preserved LV fx.EF-65%,EDP-15 mmofHg Recommendations Medical Therapy Work for non Ischemic chest pain. CC;Drs. Rocha/ Bhupendra/ Kinsey
[2017-05-12 17:33] VITALS: BP 154/69; O2SAT 100
== END 2017-05-12 17:45 | disposition home or self-care (01) ==
LOC: CATH 07:48
PROVIDERS: ATTEND Internal Medicine Cardiovascular Disease
DX: I25.10 Atherosclerotic heart disease of native coronary artery without angina pectoris (principal); E78.5 Hyperlipidemia, unspecified; E11.9 Type 2 diabetes mellitus without complications; K21.9 Gastro-esophageal reflux disease without esophagitis
CPT/HCPCS: 36415; 80048; 80061; 85025; 85610; 85730; 86850; 86900; 93005; 93458; 99152; C1769; C1887; J1644 ×2; J2250; J3010; J7040 ×2; Q9967

== ENCOUNTER 2017-05-14 10:19 | Emergency (ER) | payer OTHER ==
[2017-05-14 10:20] VITALS: BMI 21.7
[2017-05-14 10:41] VITALS: TEMP 98.9
[2017-05-14 11:09] VITALS: RESP 18; O2SAT 98
--- NOTE | 2017-05-14 11:24 | ED PDOC ---
Arrival/HPI - General Historian: Patient - History of Present Illness Time/Duration: < week Symptom Onset: Sudden Symptom Course: Unchanged Quality: Unable to Describe - General Chief Complaint: Upper Extremity Problem/Injury Time Seen by Provider: 05/14/17 10:52 - History of Present Illness Narrative History of Present Illness (Text): 05/14/17 11:18 This is a 47 year old female with PMHx Anxiety, Depression, PTSD who presents for complaint of inability to extend the left arm after cardiac catheterization performed by Dr. Howard on 05/12/17. Patient states that she was fine before the procedure, but immediately afterwards, the patient was unable to extend the left arm. Patient also complained of swelling and pain along the arm as well as bruising and paresthesias in the left arm. (Domingo Irizarry) Past Medical History - Provider Review Nursing Documentation Reviewed: Yes - Infectious Disease Hx of Infectious Diseases: None - Tetanus Immunization Tetanus Immunization: Up to Date - Cardiac Hx Pacemaker: No - Pulmonary Hx Asthma: Yes Other/Comment: pulmonary fibrosis - Neurological Hx Paralysis: No - HEENT Hx HEENT Disorder: No - Renal Hx Renal Disorder: No - Endocrine/Metabolic Hx Endocrine Disorders: No Hx Diabetes Mellitus Type 2: Yes Other/Comment: Steroid induced hyperglycemia. - Hematological/Oncological Hx Blood Transfusions: No Hx Blood Transfusion Reaction: No - Integumentary Hx Dermatological Disorder: No - Musculoskeletal/Rheumatological Hx Musculoskeletal Disorders: No ("BULGING RIBS") - Gastrointestinal Hx Gastroesophageal Reflux: Yes - Genitourinary/Gynecological Hx Genitourinary Disorders: No Other/Comment: bladder neuro stimulator - Psychiatric Hx Emotional Abuse: No Hx Physical Abuse: No Hx Substance Use: No - Surgical History Hx Cardiac Catheterization: Yes (05/12/17) - Anesthesia Hx Anesthesia Reactions: Yes (NAUSEA, STATES NEEDS ZOFRAN) Hx Malignant Hyperthermia: No - Suicidal Assessment Feels Threatened In Home Enviroment: No Family/Social History - Physician Review Nursing Documentation Reviewed: Yes Family/Social History: No Known Family HX Smoking Status: Never Smoked Hx Alcohol Use: No Hx Substance Use: No Hx Substance Use Treatment: No Allergies/Home Meds Allergies/Adverse Reactions: Allergies No Known Allergies Allergy (Verified 05/14/17 10:41) Home Medications: Home Meds Medication Instructions Recorded Confirmed Escitalopram [Lexapro] 10 mg PO DAILY 09/21/16 05/14/17 busPIRone [Buspar] 10 mg PO DAILY 09/21/16 05/14/17 Lansoprazole [Prevacid] 30 mg PO DAILY 04/24/17 05/14/17 Review of Systems - Review of Systems Constitutional: Normal Eyes: Normal ENT: Normal Respiratory: Normal Cardiovascular: Normal Gastrointestinal: Normal Genitourinary Female: Normal Musculoskeletal: Other (left arm pain with swelling, bruising, and inability to extend arm) Skin: Other (left arm bruising) Neurological: Normal Endocrine: Normal Hemo/Lymphatic: Normal Psychiatric: Normal Physical Exam Vital Signs Reviewed: Yes Temperature: Afebrile Blood Pressure: Normal Pulse: Regular Respiratory Rate: Normal Appearance: Positive for: Well-Appearing Pain Distress: None Mental Status: Positive for: Alert and Oriented X 3 - Systems Exam Head: Present: Atraumatic, Normocephalic Pupils: Present: PERRL Extroacular Muscles: Present: EOMI Conjunctiva: Present: Normal Mouth: Present: Moist Mucous Membranes Neck: Present: Normal Range of Motion Respiratory/Chest: Present: Clear to Auscultation, Good Air Exchange. No: Accessory Muscle Use Cardiovascular: Present: Regular Rate and Rhythm, Normal S1, S2 Abdomen: Present: Normal Bowel Sounds. No: Tenderness, Distention Upper Extremity: Present: NORMAL PULSES, Swelling (left arm), Other (brusing about the left distal arm) Lower Extremity: Present: Normal Inspection, NORMAL PULSES. No: Edema, CALF TENDERNESS Neurological: Present: GCS=15, CN II-XII Intact Skin: Present: Warm, Dry Psychiatric: Present: Alert, Oriented x 3 Medical Decision Making - Lab Interpretations I have reviewed the lab results: Yes ED Course and Treatment: 05/14/17 11:36 CBC, CMP, Coags, Duplex of left UE 05/14/17 13:24 Duplex was negative for DVT or hematoma. Dr. Howard was spoken with at 13:20. He agrees for discharge of the patient and will see her in his office. (Domingo Irizarry) Patient seen and evaluated with medical imaging technologist. On my exam, patient reports she has had pain with range of motion of left arm at the elbow after cardiac cath procedure. NO fever. No shoulder or wrist pain. On my examination she has strong radial pulse, she has pain on palpation of left antecubital region and left distal bicep with NO STREAKING OR ERYTHEMA noted, no pus or drainage or bleeding. She is able to range her left elbow on my exam but with some pain. Median/radial/ulnar motor and sensory function is intact. With serial exams she remains nv intact, afebrile. No axillary masses palpated or noted. She is able to grasp and make fist, able to flex and extend at wrist. Patient also evaluated by Dr. Howard in the ED, will d/c with antiinflammatorie, warm compresses, stressed need for close follow-up and reassessment. Currently afebrile with no signs of cellulitis or NV deficits. (Kianna Rico) - Lab Interpretations Lab Results: 05/14/17 12:15 05/14/17 12:15 Lab Results 05/14/17 12:15: Sodium 143, Potassium 3.6, Chloride 105, Carbon Dioxide 27, Anion Gap 15, BUN 10, Creatinine 0.6, Est GFR ( Amer) > 60, Est GFR (Non- Af Amer) > 60, Random Glucose 98, Calcium 9.5, Total Bilirubin 0.7, AST 24, ALT 31, Alkaline Phosphatase 87, Total Protein 7.6, Albumin 4.6, Globulin 3.0, Albumin/Globulin Ratio 1.5 05/14/17 12:15: PT 12.0 H, INR 1.11 H, APTT 26.8 05/14/17 12:15: WBC 8.1 D, RBC 4.79, Hgb 15.4, Hct 43.9, MCV 91.6, MCH 32.2, MCHC 35.1, RDW 12.3, Plt Count 254, MPV 10.6, Gran % 70.1 H, Lymph % (Auto) 20.8 L, Levy % (Auto) 7.5 H, Eos % (Auto) 1.2 L, Baso % (Auto) 0.4, Gran # 5.71 , Lymph # 1.7, Levy # 0.6, Eos # 0.1, Baso # 0.03 - RAD Interpretation Radiology Orders: 05/14/17 11:29 DUPLEX UPPER EXTRM VEIN LEFT [US] Stat Disposition/Present on Arrival - Present on Arrival Any Indicators Present on Arrival: No History of DVT/PE: No History of Uncontrolled Diabetes: Yes Urinary Catheter: No History of Decub. Ulcer: No History Surgical Site Infection Following: None - Disposition Have Diagnosis and Disposition been Completed?: Yes Disposition Time: 13:20 - Disposition Diagnosis: Left arm swelling Disposition: HOME/ ROUTINE Condition: STABLE Additional Instructions: Please follow up with your primary physician Dr. Rocha within 7 days of discharge. Please follow up with Dr. Howard within the next week as well. Use ice as needed to reduce swelling. If there are new or worsening symptoms, please return to the emergency room. Prescriptions: Ibuprofen [Motrin] 600 mg PO Q6H PRN #12 tab PRN Reason: Pain, Moderate (4-7) Referrals: Arnol Howard MD [Staff Provider] - Follow up with primary Rema Rocha DO [Primary Care Provider] - Follow up with primary Forms: [facility] (Pashto)
[2017-05-14 12:25] LABS: BASO # 0.03 K/mm3 (0.0-2.0); BASO % 0.4 % (0.0-3.0); EOS # 0.1 (0.0-0.7); EOS % 1.2 % (1.5-5.0); GRAN # 5.71 (1.4-6.5); GRAN % 70.1 % (50.0-68.0); HEMATOCRIT 43.9 % (36.0-48.0); LYMPH # 1.7 (1.2-3.4); LYMPH % 20.8 % (22.0-35.0); MEAN CELL VOLUME 91.6 fl (80.0-105.0); MEAN CORPUSCULAR HEMOGLOBIN 32.2 pg (25.0-35.0); MEAN CORPUSCULAR HGB CONC 35.1 g/dl (31.0-37.0); MEAN PLATELET VOLUME 10.6 fl (7.0-11.0); MONO # 0.6 (0.1-0.6); MONO % 7.5 % (1.0-6.0); RED CELL DISTRIBUTION WIDTH 12.3 % (11.5-14.5); WHITE BLOOD COUNT 8.1 10^3/ul (4.5-11.0)
[2017-05-14 12:35] LABS: INR 1.11 (0.93-1.08); PARTIAL THROMBOPLASTIN TIME 26.8 Seconds (23.7-30.8)
[2017-05-14 12:39] LABS: ALB/GLOB RATIO 1.5 (1.1-1.8); ALKALINE PHOSPHATASE 87 U/L (38-126); ALT/SGPT 31 U/L (7-56); AST/SGOT 24 U/L (14-36); BILIRUBIN,TOTAL 0.7 mg/dL (0.2-1.3); BLOOD UREA NITROGEN 10 mg/dL (7-21); CALCIUM 9.5 mg/dL (8.4-10.5); CARBON DIOXIDE 27 mmol/L (21-33); CHLORIDE 105 mmol/L (98-107); GFR AFRICAN-AMERICAN > 60; GLUCOSE,RANDOM 98 mg/dL (70-110); POTASSIUM 3.6 mmol/L (3.6-5.0); SODIUM 143 mmol/L (132-148); TOTAL PROTEIN 7.6 g/dL (5.8-8.3)
[2017-05-14 13:25] VITALS: BP 145/71; PULSE 69
--- NOTE | 2017-05-15 17:44 | US ---
PROCEDURE: Left upper extremity venous ultrasound HISTORY: Arm pain and swelling. Evaluate for deep venous thrombosis. PHYSICIAN(S): Olayinka Pulliam MD. FINDINGS: The visualized leftinternal jugular vein is sonographically normal and compressible. No evidence of obstruction or thrombus is seen. The visualized segments of the left subclavian vein are patent with normal waveforms. No sonographic evidence of obstruction or thrombosis is seen. The visualized deep venous system of the proximal leftupper extremity is sonographically normal and compressible. IMPRESSION: 1. No sonographic evidence for deep venous thrombosis in the visualized segments of the left upper extremity.
== END 2017-05-14 13:24 | disposition home or self-care (01) ==
LOC: ED 10:19
DX: M79.89 Other specified soft tissue disorders (principal); E11.9 Type 2 diabetes mellitus without complications

== ENCOUNTER 2017-11-11 16:02 | Inpatient (IN) | payer OTHER ==
[2017-11-11 16:29] VITALS: BMI 21.0
[2017-11-11] MEDS ORDERED: Piperacill/Tazo 4.5gm in NS 4.5 GM/100 ML BAG IVPB STA (17:46)
--- NOTE | 2017-11-11 18:03 | RAD ---
HISTORY: r/o infiltrate COMPARISON: No prior. FINDINGS: LUNGS: No active pulmonary disease. PLEURA: No significant pleural effusion identified, no pneumothorax apparent. CARDIOVASCULAR: Normal. OSSEOUS STRUCTURES: Thoracic dextroscoliosis VISUALIZED UPPER ABDOMEN: Normal. OTHER FINDINGS: None. IMPRESSION: No active disease.
[2017-11-11 18:08] LABS: BASO # 0.03 K/mm3 (0.0-2.0); BASO % 0.3 % (0.0-3.0); EOS # 0.3 (0.0-0.7); EOS % 3.6 % (1.5-5.0); GRAN # 5.13 (1.4-6.5); GRAN % 58.1 % (50.0-68.0); HEMOGLOBIN 14.2 g/dL (12.0-16.0); LYMPH # 2.7 (1.2-3.4); LYMPH % 30.9 % (22.0-35.0); MEAN CELL VOLUME 91.6 fl (80.0-105.0); MEAN CORPUSCULAR HEMOGLOBIN 31.2 pg (25.0-35.0); MEAN CORPUSCULAR HGB CONC 34.1 g/dl (31.0-37.0); MEAN PLATELET VOLUME 10.6 fl (7.0-11.0); MONO # 0.6 (0.1-0.6); MONO % 7.1 % (1.0-6.0); RBC 4.55 10^6/uL (3.5-6.1); RED CELL DISTRIBUTION WIDTH 12.3 % (11.5-14.5); WHITE BLOOD COUNT 8.8 10^3/ul (4.5-11.0)
[2017-11-11 18:23] LABS: URINE BILIRUBIN NEGATIVE (NEGATIVE); URINE BLOOD NEGATIVE (NEGATIVE); URINE GLUCOSE (UA) NEGATIVE (NEGATIVE); URINE LEUKOCYTE ESTERASE NEGATIVE Leu/uL (NEGATIVE); URINE PROTEIN TRACE mg/dL (<30 mg/dL); URINE UROBILINOGEN 0.2 E.U./dL (<1 E.U./dL)
[2017-11-11 18:25] LABS: URINE APPEARANCE CLEAR (CLEAR); URINE COLOR YELLOW (YELLOW); VENOUS BLOOD GAS BASE EXCESS 4.5 mmol/L (0.0-2.0); VENOUS BLOOD GAS PO2 44 mm/Hg (30-55); VENOUS BLOOD PH 7.37 (7.32-7.43)
[2017-11-11 18:32] LABS: URINE RBC 0 - 2 /hpf (0-2); URINE WBC 0 - 2 /hpf (0-6)
[2017-11-11 18:33] LABS: ALB/GLOB RATIO 1.6 (1.1-1.8); ALBUMIN 4.1 g/dL (3.0-4.8); ALT/SGPT 28 U/L (7-56); AST/SGOT 26 U/L (14-36); BLOOD UREA NITROGEN 21 mg/dL (7-21); CALCIUM 10.1 mg/dL (8.4-10.5); GFR AFRICAN-AMERICAN > 60; GFR NON-AFRICAN AMERICAN > 60
--- NOTE | 2017-11-11 18:36 | ED PDOC ---
Arrival/HPI - General Chief Complaint: Medical Clearance Time Seen by Provider: 11/11/17 16:42 Historian: Patient - History of Present Illness Narrative History of Present Illness (Text): 11/11/17 17:31 A 47 year old female, whose past medical history includes anxiety, depression, and PTSD, is sent by PMD for low fever. Patient reports temperature was 95-97 and notes also experiencing chills. 3 days ago, patient had surgical procedure performed on both breasts. Patient denies any nipple discharge, cough, or any other complaints at this time. PMD: Dr. Childs Past Medical History - Provider Review Nursing Documentation Reviewed: Yes - Infectious Disease Hx of Infectious Diseases: None - Tetanus Immunization Tetanus Immunization: Up to Date - Reproductive Menopause: Yes - Cardiac Hx Pacemaker: No - Pulmonary Hx Asthma: Yes Other/Comment: pulmonary fibrosis - Neurological Hx Paralysis: No - HEENT Hx HEENT Disorder: No - Renal Hx Renal Disorder: No - Endocrine/Metabolic Hx Endocrine Disorders: No Hx Diabetes Mellitus Type 2: Yes Other/Comment: Steroid induced hyperglycemia. - Hematological/Oncological Hx Blood Transfusions: No Hx Blood Transfusion Reaction: No - Integumentary Hx Dermatological Disorder: No - Musculoskeletal/Rheumatological Hx Musculoskeletal Disorders: No ("BULGING RIBS") - Gastrointestinal Hx Gastroesophageal Reflux: Yes - Genitourinary/Gynecological Hx Genitourinary Disorders: No Other/Comment: bladder neuro stimulator - Psychiatric Hx Emotional Abuse: No Hx Physical Abuse: No Hx Substance Use: No - Surgical History Hx Cardiac Catheterization: Yes (05/12/17) Other/Comment: bilateral breast reconstructive sx - Anesthesia Hx Anesthesia Reactions: Yes (NAUSEA, STATES NEEDS ZOFRAN) Hx Malignant Hyperthermia: No - Suicidal Assessment Feels Threatened In Home Enviroment: No Family/Social History - Physician Review Nursing Documentation Reviewed: Yes Family/Social History: No Known Family HX Smoking Status: Never Smoked Hx Alcohol Use: No Hx Substance Use: No Hx Substance Use Treatment: No Allergies/Home Meds Allergies/Adverse Reactions: Allergies No Known Allergies Allergy (Verified 11/11/17 16:29) Home Medications: Home Meds Medication Instructions Recorded Confirmed Escitalopram [Lexapro] 10 mg PO DAILY 09/21/16 11/11/17 busPIRone [Buspar] 10 mg PO DAILY 09/21/16 11/11/17 Lansoprazole [Prevacid] 30 mg PO DAILY 04/24/17 11/11/17 Ondansetron HCl [Zofran] 0 mg PO PRN PRN 11/11/17 11/11/17 oxyCODONE/Acetaminophen [Percocet 1 tab PO PRN PRN 11/11/17 11/11/17 5/325 mg Tab] Review of Systems - Physician Review All systems were reviewed & negative as marked: Yes - Review of Systems Constitutional: Fevers (low) Respiratory: absent: Cough Physical Exam Vital Signs Reviewed: Yes Vital Signs Temp Pulse Resp BP Pulse Ox 11/11/17 18:03 67 17 145/80 100 11/11/17 16:32 98.5 F 64 19 98 11/11/17 16:28 98.5 F 66 20 149/89 98 Temperature: Afebrile Blood Pressure: Normal Pulse: Regular Respiratory Rate: Normal Appearance: Positive for: Well-Appearing Pain Distress: None Mental Status: Positive for: Alert and Oriented X 3 - Systems Exam Head: Present: Atraumatic, Normocephalic Pupils: Present: PERRL Extroacular Muscles: Present: EOMI Conjunctiva: Present: Normal Mouth: Present: Moist Mucous Membranes Neck: Present: Normal Range of Motion Respiratory/Chest: Present: Clear to Auscultation, Good Air Exchange. No: Respiratory Distress, Accessory Muscle Use Cardiovascular: Present: Regular Rate and Rhythm, Normal S1, S2. No: Murmurs Abdomen: Present: Normal Bowel Sounds. No: Tenderness, Distention, Peritoneal Signs Breast/Axillary: Present: Other (surgical sutures at base of both breasts; no discharge from sutures), Tender to Palpation. No: Nipple Discharge Back: Present: Normal Inspection Upper Extremity: Present: Normal Inspection. No: Cyanosis, Edema Lower Extremity: Present: Normal Inspection. No: Edema Neurological: Present: GCS=15, CN II-XII Intact, Speech Normal Skin: Present: Warm, Dry, Normal Color. No: Rashes Psychiatric: Present: Alert, Oriented x 3, Normal Insight, Normal Concentration Medical Decision Making ED Course and Treatment: 11/11/17 17:35 Impression: 47 year old female with low fever. Physical exam is normal; breast exam: chaperoned by female nurse, shows surgical sutures at base of both breast , positive tenderness, no discharge from sutures/nipples. Plan: -- Chest X-ray -- Labs -- Venous Blood Gas -- Zosyn -- Blood Culture -- Urine Culture -- Urinalysis -- Influenza A B Stat -- Reassess and disposition Prior Visits: Notes and results from previous visits were reviewed. Patient was last seen in the emergency department on 05/14/2017 for inability to extend the left arm after cardiac catherization. Patient was d/c home. Progress Notes: 11/11/2017 18:01 Chest X-ray IMPRESSION: No active disease. Dictator: Kavin Hurst MD - Lab Interpretations Lab Results: 11/11/17 17:35 11/11/17 17:35 Lab Results 11/11/17 17:35: pO2 44, VBG pH 7.37, VBG pCO2 54.0, VBG HCO3 31.2 H, VBG Total CO2 32.9 H, VBG O2 Sat (Calc) 85.4 H, VBG Base Excess 4.5 H, VBG Potassium 3.8, Sodium 139.0, Chloride 105.0, Glucose 108 H, Lactate 0.9, FiO2 21.0, Venous Blood Potassium 3.8 11/11/17 17:35: Urine Color Yellow, Urine Appearance Clear, Urine pH 6.0, Ur Specific [place] 1.025, Urine Protein Trace H, Urine Glucose (UA) Negative, Urine Ketones Negative, Urine Blood Negative, Urine Nitrate Negative, Urine Bilirubin Negative, Urine Urobilinogen 0.2, Ur Leukocyte Esterase Negative, Urine RBC 0 - 2, Urine WBC 0 - 2, Ur Epithelial Cells 1 - 3 11/11/17 17:35: Influenza Typ A,B (EIA) Negative for flu a/b 11/11/17 17:35: Sodium 139, Chloride 102, Potassium 4.0, Carbon Dioxide 29, Anion Gap 12, BUN 21, Creatinine 0.6 L, Est GFR ( Amer) > 60, Est GFR ( Non-Af Amer) > 60, Random Glucose 102, Calcium 10.1, Total Bilirubin 0.5, AST 26 , ALT 28, Alkaline Phosphatase 101, Total Protein 6.7, Albumin 4.1, Globulin 2.6 , Albumin/Globulin Ratio 1.6 11/11/17 17:35: WBC 8.8, RBC 4.55, Hgb 14.2, Hct 41.7, MCV 91.6, MCH 31.2, MCHC 34.1, RDW 12.3, Plt Count 241, MPV 10.6, Gran % 58.1, Lymph % (Auto) 30.9, [place] % (Auto) 7.1 H, Eos % (Auto) 3.6, Baso % (Auto) 0.3, Gran # 5.13, Lymph # (Auto ) 2.7, [place] # (Auto) 0.6, Eos # (Auto) 0.3, Baso # (Auto) 0.03 I have reviewed the lab results: Yes - RAD Interpretation Radiology Orders: 11/11/17 17:10 CHEST PORTABLE [RAD] Stat - Medication Orders Current Medication Orders: Atorvastatin Calcium (Lipitor) 20 mg PO DIN XIOMARA Buspirone HCl (Buspar) 10 mg PO DAILY XIOMARA PRN Reason: Protocol Escitalopram Oxalate (Lexapro) 10 mg PO DAILY XIOMARA Famotidine (Pepcid) 40 mg PO HS XIOMARA Piperacillin Sod/Tazobactam Sod (Zosyn 3.375 In Ns 100ml) 100 mls @ 200 mls/hr IVPB Q6 XIOMARA PRN Reason: Protocol Stop: 11/19/17 00:01 Vancomycin HCl (Vancomycin 1gm) 1 gm in 250 mls @ 167 mls/hr IVPB Q12H XIOMARA PRN Reason: Protocol Methylprednisolone (Solu-Medrol) 40 mg IVP Q12 XIOMARA Ondansetron HCl (Zofran Tab) 4 mg PO PRN PRN PRN Reason: Nausea/Vomiting Oxycodone/Acetaminophen (Percocet 5/325 Mg Tab) 1 tab PO PRN PRN PRN Reason: Pain, moderate (4-7) Stop: 11/14/17 20:37 Pantoprazole Sodium (Protonix Ec Tab) 40 mg PO ACB XIOMARA Discontinued Medications Piperacillin Sod/Tazobactam Sod (Zosyn 4.5 Gm In Ns 100ml) 4.5 gm in 100 mls @ 200 mls/hr IVPB STAT STA PRN Reason: Protocol Stop: 11/11/17 18:15 Last Admin: 11/11/17 18:30 Dose: 200 mls/hr eMAR Start Stop Document 11/11/17 18:30 SF (Rec: 11/11/17 19:33 SF [id number] Intravenous Solution Start Date 11/11/17 Start Time 18:30 End Date 03/16/18 End time 19:00 Total Infusion Time 30 - Scribe Statement The provider has reviewed the documentation as recorded by the Ana Og Provider Ana Attestation: All medical record entries made by the Ana were at my direction and personally dictated by me. I have reviewed the chart and agree that the record accurately reflects my personal performance of the history, physical exam, medical decision making, and the department course for this patient. I have also personally directed, reviewed, and agree with the discharge instructions and disposition. Disposition/Present on Arrival - Present on Arrival Any Indicators Present on Arrival: No History of DVT/PE: No History of Uncontrolled Diabetes: Yes Urinary Catheter: No History of Decub. Ulcer: No History Surgical Site Infection Following: None - Disposition Have Diagnosis and Disposition been Completed?: Yes Diagnosis: Cellulitis Disposition: HOSPITALIZED Disposition Time: 17:50 Condition: STABLE
[2017-11-11] MEDS ORDERED: Oxycodone/Acetaminophen 5/325 mg Tab PO PRN (20:36)
[2017-11-11] MEDS: MethylPREDNISolone 40 mg Vial IVP SCH (22:30)
[2017-11-11] MEDS: Vancomycin 1gm in NS 250ml 1 GM/250 ML BAG IVPB SCH (23:11)
[2017-11-12] MEDS: Piperacillin/Tazobact 3.375 gm 100 ML IVPB SCH ×4 (00:04→17:29)
--- NOTE | 2017-11-12 07:08 | CON ---
DATE: ENDOCRINOLOGY CONSULTATION LOCATION: Room 561. HISTORY OF PRESENT ILLNESS: This is a 47-year-old female who admitted with hypothermia, chills and rigors, and also with concomitant bacteremia and cellulitis and is now being referred for endocrine evaluation because of chronic steroid use and dependence and possible hypoadrenalism thereof. PAST MEDICAL HISTORY: She has significant history of pulmonary fibrosis and has been on steroid usage for some years now as noted. History of recent breast reconstructive surgery done bilaterally as noted. History of generalized anxiety and depression, currently on psychotropic medications with BuSpar and Lexapro medications as given. History of apparent post-traumatic stress syndrome, the details of which have yet to be elucidated at this time. History of secondary diabetes with intermittent usage of insulin for inpatient use when she has been placed on IV steroid therapy as noted. Admits to having been on chronic intake of Prednisone at high doses tapered down to lower doses over the 10 years or more. She has stopped Prednisone though in the last few months prior to admission. She denies any current oral hypoglycemic therapy as given. FAMILY HISTORY: Positive for hypertension and heart disease. SOCIAL HISTORY: Patient denies any substance use, has a supportive family otherwise. REVIEW OF SYSTEMS: As mentioned above. Admits to episodic bouts of dizziness and lightheadedness worse on the day of admission. Also admits to easy fatigability and tiredness of suboptimal energy level with supervening chills and rigors on the day of admission. No chest pains or palpitations or PND, but admits to episodic shortness of breath especially on exertion, recent upper respiratory infection noted. Her oral intake has been variable with nausea and dyspepsia and vague upper abdominal pains. No recent alterations of bowel and urinary patterns. PHYSICAL EXAMINATION: GENERAL: This is an average-built female, in no apparent distress. VITAL SIGNS: Blood pressure of 150/84, pulse of 70 beats per minute and regular, temperature 97, respirations 20, height is 5 feet 2 inches, weight is 115 pounds. HEENT: Head normocephalic. Eyes anicteric with pink conjunctivae. Funduscopy not possible at this time. Ears, nose and throat otherwise normal. NECK: Supple. Thyroid gland is normal in size. No carotid bruits or any cervical adenopathy. CARDIOPULMONARY: Some adynamic precordium. S1, S2 is rapid and regular. LUNGS: Clear to auscultation. ABDOMEN: Flat, soft with positive bowel sounds. EXTREMITIES: No peripheral edema. Pulses are +2 bilaterally. LABORATORY DATA: Chemistry showed a BUN of 21, sodium 139, potassium 4.0, chloride 102, CO2 29, glucose 102 and creatinine 0.6. ASSESSMENT: This is a 47-year-old female with history of steroid dependence and possible adrenal insufficiency started empirically on IV steroids as noted. She also has possible bacteremia and cellulitis and currently undergoing intravenous antibiotic management as given. She is being referred now for evaluation of chronic steroid dependence with underlying pulmonary fibrosis as noted thereof. Moreover, she has been placed on IV steroid therapy at this time as ordered. PLAN OF MANAGEMENT: As discussed with the patient and staff, we will obtain a baseline serum cortisol and ACTH level, which actually have been ordered in the emergency room as noted. We will also add T4 and TSH with a hemoglobin A1c to ascertain the underlying degree of glucose intolerance and presence of overt Diabetes or prediabetes, which would be quite common in patients with chronic steroid dependence. We will obtain serial chemistries and supplement accordingly needed. We will determine the need for initiation of basal insulin as indicated and/or oral hypoglycemic therapy given in combination as indicated. Moreover, will also consider a Cortrosyn Stimulation test as indicated..We will follow and advise accordingly. Ayla Piña MD MTDNadja
[2017-11-12 07:17] LABS: ALB/GLOB RATIO 1.3 (1.1-1.8); ALT/SGPT 31 U/L (7-56); AST/SGOT 34 U/L (14-36); BLOOD UREA NITROGEN 17 mg/dL (7-21); CALCIUM 10.1 mg/dL (8.4-10.5); GFR AFRICAN-AMERICAN > 60; GFR NON-AFRICAN AMERICAN > 60; HDL CHOLESTEROL 85 mg/dL (29-60)
[2017-11-12 07:26] LABS: LDL CHOLESTEROL 113 mg/dL (0-129)
[2017-11-12 07:37] LABS: T4 7.3 ug/dL (5.5-11.0)
[2017-11-12] MEDS ORDERED: Non Formulary Medication (Lansoprazole [Prevacid] 30 MG) PO SCH (10:00)
[2017-11-12] MEDS: Pantoprazole 40 mg EC Tab PO SCH (10:49)
[2017-11-12] MEDS: Vancomycin 1gm in NS 250ml 1 GM/250 ML BAG IVPB SCH ×2 (10:50→21:48)
[2017-11-12] MEDS: MethylPREDNISolone 40 mg Vial IVP SCH ×2 (10:50→21:47)
[2017-11-12] MEDS ORDERED: Oxycodone/Acetaminophen 5/325 mg Tab PO PRN (14:59)
[2017-11-12] MEDS: Insulin Reg-LOW-Coverage SC SCH ×2 (17:29→21:37)
--- NOTE | 2017-11-12 23:01 | CON ---
DATE: LOCATION: Patient is seen earlier in room 561, bed 1. CHIEF COMPLAINT: Worsening of breast pain times several days. HISTORY OF PRESENT ILLNESS: This is a 47-year-old female, highly anxious with history of anxiety, depression, post-traumatic stress syndrome, history of idiopathic diffuse interstitial lung disease, pulmonary fibrosis, and an open lung biopsy in [facility] which was diagnosed with pulmonary fibrosis and idiopathic interstitial lung disease. Had been on steroids up to 120 mg a day at one time and now has been off of steroids for over 7 months and had plastic surgery in bilateral breasts on 11/08/2017, which is now on a postop day #4 and states that she is having significant pain in her breast. She states that she was having the pain before the plastic surgery. She initially had surgery on her breast prior to that and she has had breast pain for some time; however, she states the pain in her breast has gotten worse since her surgery. She also is complaining of chills, but she has not had any fevers and she says her temperature is low and she is having chills. There is no new shortness of breath, no new cough. No abdominal pain or diarrhea or constipation and no dysuria or frequency. No headaches. PAST MEDICAL HISTORY: Significant for idiopathic poorly-diffuse interstitial lung disease, pulmonary fibrosis, anxiety, depression, and PTSD. Patient also has diabetes. PAST SURGICAL HISTORY: Significant for the open lung biopsy at [facility] years ago, hysterectomy and tubal ligation, and patient has also a history of breast cancer and had also mastectomy in 01/2017 ALLERGIES: PATIENT HAS NO KNOWN ALLERGIES. MEDICATIONS: At home include oxycodone, Percocet, Zofran, BuSpar, Motrin, Lexapro, Lipitor, Prevacid. PHYSICAL EXAMINATION: GENERAL: Patient is in bed, somewhat anxious, however, comfortable and answering questions. VITAL SIGNS: Temperature of 98.6, lowest temperature she has been documented is 97.9. Patient has a heart rate of 60, up to 66. Respiratory rate of 18. Blood pressure is 122/51. HEENT: Unremarkable. NECK: Supple. LUNGS: Have decreased breath sounds. HEART: Normal S1, S2. ABDOMEN: Soft, nontender. BREASTS: There is no erythema. No discharge from both breasts. The site of surgical incision is clean; however, she insists that she is having significant exquisite pain on both the incision sites and with no evidence of infection or cellulitis on exam. LABORATORY EXAMINATION: Reveals that the patient's white count is 8.8, hemoglobin of 14, platelets of 241, and differential is normal. ABGs are noted. Chemistries reveal a BUN of 21, creatinine of 0.6. Cholesterol is 222. Urinalysis is unremarkable and influenza is negative. Patient had a chest x-ray, which is reported to be negative. Dr. Piña's consultation is reviewed and Dr. Anne emergency room chart is reviewed. ASSESSMENT AND PLAN: This is a 47-year-old female with history of diabetes, breast cancer, anxiety, depression, pulmonary fibrosis, idiopathic diffuse interstitial lung disease, post traumatic stress syndrome, whose status is: 1. Status post breast plastic surgery, postprocedure day #4 with significant pain, bilateral breast pain, right greater than the left with no evidence of erythema, no evidence of discharge, no evidence of cellulitis on exam. Currently on vancomycin and Zosyn. We will check on her culture results. It is possible for her to have an infection the incision site that is not evident on exam and she should have a breast surgical evaluation. Currently is on vancomycin and Zosyn and we will follow with you. Reginaldo Ford MD
[2017-11-13] MEDS: Piperacillin/Tazobact 3.375 gm 100 ML IVPB SCH ×3 (00:13→11:39)
--- NOTE | 2017-11-13 05:01 | PN ---
DATE: SUBJECTIVE: The patient is a 47-year-old female. The patient is seen and examined at the bedside, looking comfortable. As per the patient's last night, she does not have a feeling of sickness. Even, she was getting attacks of sweaty neck. No nausea, vomiting, diarrhea, hematuria, or hematochezia. No swelling of the legs. No chest pain. No palpitation. No headache, dizziness. PHYSICAL EXAMINATION: VITAL SIGNS: Temperature 98.0, pulse 62, blood pressure 113/58, respiratory rate 20. HEENT: Head normocephalic, atraumatic. Eyes PERRLA. Extraocular muscles are intact. Conjunctivae clear. Nose patent. Mucous membrane moist. NECK: Supple. No carotid bruit. No JVD or thyromegaly. CHEST: Bilaterally symmetrical. HEART: S1 and S2 positive. LUNGS: Clear to auscultation. ABDOMEN: Soft. Bowel sounds present. No organomegaly. EXTREMITIES: No edema. No cyanosis. NEUROLOGICAL: The patient is awake and alert. Moving all 4 extremities. No focal deficits. LABORATORY DATA: We do not have recent lab today, but I saw glucose 196, 190, TSH 0.30. Cortisol a.m. sample is low. P.m. cortisol was 3.66. MEDICATIONS: BuSpar, insulin, Lexapro, Lipitor, Pepcid, Percocet, Protonix, methylprednisolone, vancomycin, Zofran, Zosyn. ASSESSMENT AND PLAN: Seen by Dr. Ford, Infectious Disease and Dr. Ayla Piña. The patient has history of idiopathic poorly diffuse interstitial lung disease, pulmonary fibrosis, anxiety, depression, posttraumatic stress disorder. The patient has also steroid-induced diabetes. She was using heavy dose of steroid according to her 80-100 mg everyday from the chief psychologist. History of breast cancer, status post breast plastic surgery, postoperative day 4, significant pain. Bilateral breast is tender, getting pain medication, on vancomycin and Zosyn. Infectious Disease is on the case. Checking culture. treatment, getting Solu-Medrol. We will follow. Daya Childs MD [facility] # [id number] MTDNadja
[2017-11-13] MEDS: Insulin Reg-LOW-Coverage SC SCH ×2 (08:15→17:36)
[2017-11-13] MEDS: Pantoprazole 40 mg EC Tab PO SCH (08:16)
[2017-11-13] MEDS: Vancomycin 1gm in NS 250ml 1 GM/250 ML BAG IVPB SCH (08:16)
[2017-11-13] MEDS: MethylPREDNISolone 40 mg Vial IVP SCH ×2 (09:07→21:21)
--- NOTE | 2017-11-13 10:59 | CON ---
DATE: PULMONARY CONSULTATION REFERRING PHYSICIAN: Dr. Childs. REASON FOR CONSULT: Status post bilateral breast reconstruction surgery, postop hypotensive, lethargic, history of chronic lung disease. HISTORY OF PRESENT ILLNESS: This is a 47-year-old female, history of anxiety, depression, PTSD. Apparently, for many years, she was treated for chronic lung disease with Cytoxan, steroids, been on steroids for almost 9 to 10 years, even at one point evaluated for lung transplant. Her steroids were discontinued about a year and half ago or so. So overall, she was doing okay, found to have a bilateral fibrotic breast tissue, underwent resection, now recently had a reconstructive surgery of the bilateral breasts with silicone placement. Postop, she was not feeling well, becoming hypothermic. Temperature was 95 or so, especially at night; feeling chills, body aches and pains. She was seen by her surgeon and [facility]. She was seen by Dr. Childs, was sent to Emergency Room. Apparently, did have some hypotension. Presently lying in the bed, feels a little better, was given steroids and antibiotics, seen by Endocrinology and Infectious Diseases. No cough. No sputum production. No abdominal pain. Denies any discharge from the incision site. No dysuria, neck pain or leg swelling. PAST MEDICAL HISTORY: By history, she had chronic lung disease. At one point, was diagnosed with pulmonary fibrosis; diabetes, which was steroid induced; GERD, history of cardiac catheterization in the past, history of hip replacement. SOCIAL HISTORY: Denies smoking or alcohol use. FAMILY HISTORY: No significant cardiopulmonary disease reported. ALLERGIES: NONE KNOWN. MEDICATIONS: She is on BuSpar 10 mg daily, insulin coverage, Lexapro 10 mg daily, Lipitor 20 mg daily, Pepcid 40 mg at bedtime, Percocet 5/325 one tablet q. 8 hour p.r.n., Protonix 40 mg daily, Solu-Medrol 40 mg q. 12 hours, vancomycin 1 g IV q. 12 hours, Zofran p.r.n., Zosyn 3.375 g IV q.6 hours. REVIEW OF SYSTEMS: No headaches. No rhinitis. No cough. No sputum production. Denied any chest pain. Incision site looks okay. No nausea. No vomiting or diarrhea. No leg pain or leg swelling. She just has aches and pains and does feel weak. PHYSICAL EXAMINATION GENERAL: No acute distress. VITAL SIGNS: Temperature 98, heart rate is 67, blood pressure 119/55, pulse ox is 97% on room air. HEENT: Moist mucous membrane. No ulcer or thrush noted. NECK: Supple. No JVD. LUNGS: Have fair airflow with a few rhonchi. HEART: S1 and S2. ABDOMEN: Soft, nontender. No organomegaly. CHEST: Bilateral breast incision sites look okay, mild erythema. EXTREMITIES: There is no edema. NEUROLOGIC: Awake, alert. Follows simple command. LABORATORY DATA: Shows hemoglobin 14.2, hematocrit 41.7, WBC 8.8, platelets is 241,000. VBG shows pH 7.37, pCO2 54, O2 is 44. Sodium 141, potassium 4.1, chloride 106, bicarbonate 23, BUN 17, creatinine 0.6, glucose 155, calcium 10.1, AST 34, ALT 31, alkaline phosphatase is 103, albumin is 4, globulin 3.1, cholesterol is 222, thyroxine 7.3, TSH is 0.3. Cortisol level which was done this morning is 2.9. Microbiology: Blood culture has been negative. Had a chest x-ray done in Emergency Room, which shows no active pulmonary disease. IMPRESSION AND PLAN: Adrenal insufficiency, history of chronic obstructive lung disease, anxiety/depression/posttraumatic stress disorder, status post bilateral breast reconstruction surgery, been hypothermic and having generalized body aches, pains and weakness, seen by Endocrinology, also seen by Infectious Diseases. Started broad-spectrum antibiotics. She is a healthcare worker. Also, Solu-Medrol 40 q. 12 hour is being started. She is feeling much better. Pulmonary point of view, she is stable. May need to taper steroids slowly down as her wound of the breast gets better. In the future, she should be on adrenal insufficiency precaution before any body insult. Will need further workup including PFT to assess chronic lung disease. Thank you and we will follow with you. Arnol Herrera MD
[2017-11-13] MEDS: Cefepime 1gm in NS 100ml 1 GM/100 ML BAG IVPB SCH ×2 (14:59→21:22)
--- NOTE | 2017-11-13 18:11 | PN ---
DATE: ENDOCRINOLOGY FOLLOWUP NOTE LOCATION: Room 561. SUBJECTIVE: This is a 47-year-old female admitted with hypothermia, chills, rigors, and generalized body weakness following a recent breast reconstructive surgical procedure and is now being followed closely for metabolic management. She admits to chronic steroid dependence for management of pulmonary fibrosis as noted thereof, but apparently has been off prednisone for a few months prior to this admission. She has improved clinically and metabolically overnight as noted with subsidence of dizziness and lightheadedness and generalized body weakness as noted. Her serum cortisol levels were all very low with the initial random cortisol of 3.66 and the fasting cortisol done in the morning of 2.9 mcg/dL. This is indicative of secondary adrenal insufficiency or secondary hypoadrenalism from the chronic steroid dependence thereof. With the recent physical stressors of the surgical procedures undertaken, it would not be surprising that her body would metabolically decompensate, requiring IV and then eventually oral steroid replacement therapy. PLAN OF MANAGEMENT: As discussed directly with the patient at bedside the imperative need to continue the IV steroids at this time will be undertaken and we will switch her over to a more physiologic oral steroid replacement with prednisone to be given as 10 mg in the morning and 5 mg in the evening as indicated. We will obtain serial chemistries and serial cortisol levels accordingly. We will highly suggest that she follows with her pulmonary specialists and primary physicians for closer medical and metabolic followup. We will follow. Ayla Piña MD
--- NOTE | 2017-11-13 18:23 | CT ---
PROCEDURE: CT Chest without contrast HISTORY: r/o collection post sx COMPARISON: Comparison is made to the previous study dated 03/10/2017 TECHNIQUE: Contiguous axial images were obtained through the chest without intravenous contrast enhancement. Sagittal and coronal reconstructions were performed. Radiation dose (DLP): 181.34 mGy-cm. This CT exam was performed using one or more of the following dose reduction techniques: Automated exposure control, adjustment of the mA and/or kV according to patient size, and/or use of iterative reconstruction technique. FINDINGS: LUNGS: No significant interval change in the lungs noted since the previous exam. Again seen are foci of calcification at the right lung. No evidence of new infiltrate or consolidation in the lungs. . MEDIASTINUM: Unremarkable thoracic aorta. No aneurysm. Normal sized heart. Main pulmonary artery unremarkable. No vascular congestion. No lymphadenopathy. PLEURA: No pleural fluid. No pneumothorax. BONES: Moderate dextroscoliosis at the thoracic spine is again noted. UPPER ABDOMEN: Grossly unremarkable. OTHER FINDINGS: Patient is status post bilateral breast implants since the previous exam. There are foci of air seen at the left supraclavicular region of uncertain etiology. IMPRESSION: No evidence of pleural effusion or pneumothorax. No evidence of fluid collection in the chest. Foci of air seen at the left supraclavicular region of uncertain etiology. Correlate clinically for possible recent procedure at that area. Status post bilateral breast implant. Otherwise no significant interval change noted since the previous exam.
--- NOTE | 2017-11-13 19:19 | PN ---
DATE: SUBJECTIVE: The patient is in bed, in no acute distress, and the patient is doing well. No fevers or chills. PHYSICAL EXAMINATION: VITAL SIGNS: Temperature is 98, blood pressure is 108/60, respiratory rate of 20, heart rate of 82. HEENT: Unremarkable. NECK: Supple. LUNGS: Have decreased breath sounds. HEART: Normal S1 and S2. ABDOMEN: Soft, nontender. LABORATORY DATA: Reveals the white count of 8. Chemistries are noted. Dr. Childs's note from yesterday is reviewed. Examination of the wound does not reveal any evidence of infection. Microbiology reveals the blood cultures are negative. ASSESSMENT AND PLAN: A 47-year-old female who has anxiety, depression, posttraumatic stress syndrome, history of idiopathic diffuse interstitial lung disease, pulmonary fibrosis, had open lung biopsy in the past, and who has history of breast cancer, had a mastectomy, and status post breast plastic surgery, postprocedure day #5 with pain, but no evidence of infection, no discharge, no erythema. We will discontinue the vancomycin and change Zosyn to maxipime and doxy. Cultures are negative. We will give a short course of doxycycline 100 mg p.o. b.i.d. x5 days upon d/c, will order a ct of chest r/o collection Reginaldo Ford MD [facility]
--- NOTE | 2017-11-13 21:51 | PN ---
DATE: 11/13/2017 PULMONARY PROGRESS NOTE REFERRING PHYSICIAN: Daya Childs MD. SUBJECTIVE: The patient is lying in the bed, wants to go home. Feels better. No more hypothermia overnight. Muscle pain has gone. Blood pressure is stabilized. Bilateral breast tenderness is better. No breast discharge. No nausea. No vomiting, diarrhea, leg pain or leg swelling. OBJECTIVE: GENERAL: In no acute distress. VITAL SIGNS: Temperature is 98, heart rate is 76, respiratory rate is 20, blood pressure 108/60, pulse ox 96% on room air. HEENT: Moist mucous membrane. Crowded airway. NECK: Supple. No JVD. LUNGS: Have a fair airflow with rhonchi. HEART: S1 and S2. ABDOMEN: Soft, nontender. No organomegaly. EXTREMITIES: There is no edema. NEUROLOGIC: Awake and alert. Follows simple command. BREASTS: Bilateral breast has a dressing. MEDICATIONS: She is on BuSpar 10 mg daily, doxycycline 100 mg twice a day, insulin coverage, Lexapro 10 mg daily, Lipitor 20 mg daily, cefepime 1 g q. 8 hours, Pepcid 40 mg at bedtime, Percocet 5/325 one tablet q. 8 hour p.r.n., Protonix 40 mg daily, Solu-Medrol 20 mg q. 12 hours, Zofran p.r.n. basis. LABORATORY DATA: Reviewed and noted. No new lab is available since yesterday. Blood sugar is 81. Microbiology: Blood culture, urine culture, there is no growth. CT of the chest was done, report is still pending. IMPRESSION AND PLAN: Adrenal insufficiency, chronic obstructive lung disease, anxiety/depression/posttraumatic stress disorder, status post bilateral breast reconstruction after the biopsies, resolved hypothermia, muscle aches and pains. Feels okay and wants to go home. Solu-Medrol decreased to 20 q. 12 hours. If cleared by Infectious Diseases, by tomorrow I think she can go home on 20 mg of prednisone and slowly we will taper down. We will reevaluate her chronic lung disease including pulmonary function test. Once improve . Thank you and we will follow with you. Arnol Herrera MD [facility] # [id number]
[2017-11-14] MEDS: Cefepime 1gm in NS 100ml 1 GM/100 ML BAG IVPB SCH (05:29)
[2017-11-14 07:31] LABS: BASO # 0.02 K/mm3 (0.0-2.0); BASO % 0.2 % (0.0-3.0); EOS % 0.1 % (1.5-5.0); GRAN # 7.13 (1.4-6.5); GRAN % 71.1 % (50.0-68.0); LYMPH # 2.3 (1.2-3.4); LYMPH % 22.6 % (22.0-35.0); MEAN CELL VOLUME 91.5 fl (80.0-105.0); MEAN CORPUSCULAR HEMOGLOBIN 31.4 pg (25.0-35.0); MEAN CORPUSCULAR HGB CONC 34.3 g/dl (31.0-37.0); MEAN PLATELET VOLUME 10.4 fl (7.0-11.0); MONO # 0.6 (0.1-0.6); RBC 4.46 10^6/uL (3.5-6.1); RED CELL DISTRIBUTION WIDTH 12.3 % (11.5-14.5)
[2017-11-14 08:04] LABS: ALB/GLOB RATIO 1.3 (1.1-1.8); ALBUMIN 4.1 g/dL (3.0-4.8); ALT/SGPT 34 U/L (7-56); AST/SGOT 23 U/L (14-36); BLOOD UREA NITROGEN 16 mg/dL (7-21); GFR AFRICAN-AMERICAN > 60; GFR NON-AFRICAN AMERICAN > 60
[2017-11-14 08:05] LABS: T4 6.6 ug/dL (5.5-11.0)
[2017-11-14] MEDS: Insulin Reg-LOW-Coverage SC SCH (08:33)
[2017-11-14] MEDS: Pantoprazole 40 mg EC Tab PO SCH (08:35)
--- NOTE | 2017-11-14 09:08 | PN ---
DATE: 11/12/2017 ENDOCRINOLOGY FOLLOWUP NOTE LOCATION: Room 561. SUBJECTIVE: This is a 47-year-old female admitted with hypothermia and generalized body weakness with a cellulitis and has been started on IV steroid therapy for possible hypoadrenalism and is being followed closely for metabolic management. She feels a whole a lot better overnight with of the hypothermia and also the dizziness and lightheadedness and cutaneous flushing as noted thereof. LABORATORY DATA: Her repeat chemistries today shows a BUN of 17, sodium 141, potassium 4.1, chloride 106, CO2 of 23, glucose 155 and creatinine 0.6. Her thyroid study shows a T4 of 7.3 with a TSH of 0.30 and random cortisol level is still pending at this time. ASSESSMENT: This is a 47-year-old female with recent bilateral breast reconstructive surgery and supervening hypothermia with generalized body weakness and labile hypertension and is being followed closely for endocrine evaluation and management. She remains clinically euadrenal at this time and is actually on IV steroids as given. With the recent physical stressors of the bilateral breast reconstructive surgery and significant history of hypoadrenalism related to longstanding steroid usage for pulmonary fibrosis, there is always a possibility of a brief and transient hypoadrenalism secondary adrenal insufficiency thereof. Her thyroid studies are indicative of the thyroid syndrome excluding the possibility of hypothyroidism as noted otherwise. PLAN OF MANAGEMENT: As discussed lengthy with the patient at bedside, we will continue her IV steroids as given with Solu-Medrol at 40 mg IV every 12 hours pending the availability of her random serum cortisol level as given. We will also await the results of the ACTH level as ordered last night. If we are able to document the presence of a very low serum cortisol at least below 10 mcg/dL, then she may need a very low dose oral steroid maintenance therapy upon discharge as discussed with her lengthy at bedside. If the random cortisol is normal, then there is no need for an outpatient oral steroid therapy as mentioned. We will follow and advise accordingly. Ayla Piña MD
--- NOTE | 2017-11-14 09:53 | PN ---
DATE: 11/14/2017 The patient is a 47-year-old female. SUBJECTIVE: The patient was seen and examined at the bedside, looking comfortable, getting better, last night was better than the previous night. No more hypothermia overnight. Even feeling of sickness is getting better. Still has pain in both breasts, but is better. Blood pressure is stable. Temperature is stable. No discharge from the breast. No nausea, vomiting or diarrhea. No fever. No chills. PHYSICAL EXAMINATION VITAL SIGNS: Temperature 98, heart rate 73, respiratory rate 20, blood pressure 108/60, pulse oximetry 96% on room air. HEENT: Head is normocephalic and atraumatic. Eyes, PERRLA. Extraocular muscles are intact. Conjunctivae are clear. Nose is patent. Mucous membrane are moist. NECK: Supple. No carotid bruit. No JVD or thyromegaly. CHEST: Bilaterally symmetrical. HEART: S1 and S2 positive. LUNGS: Clear to auscultation. ABDOMEN: Soft. Bowel sounds present. No organomegaly. EXTREMITIES: No edema. No cyanosis. BREASTS: Bilaterally, has a dressing and looks like healing well. MEDICATIONS: BuSpar, doxycycline, insulin, Lexapro, Lipitor, cefepime, Pepcid, Percocet, Protonix, Solu-Medrol, and Zofran. LABORATORY DATA: We do not have recent labs, but I reviewed old labs. Blood sugar is 81. Blood culture and urine culture, there is no growth. CT of the chest was done, reviewed by me. ASSESSMENT AND PLAN: Elena is a 47-year-old lady with adrenal insufficiency, chronic obstructive lung disease, anxiety, depression, posttraumatic stress syndrome, status post bilateral breast biopsy and status post bilateral breast reconstruction surgery, resolved hypothermia with antibiotics and with Solu-Medrol. Muscle aches and pains better. Solu-Medrol is getting tapering dose. Length of time discussion done with Dr. Ford, Infectious Disease. Gastrointestinal and deep venous thrombosis prophylaxis. Reviewed Dr. Herrera's and Dr. Ford's notes. Reviewed Dr. Ayla Piña's notes also. Even, Dr. Ayla Piña spoke to the patient on the phone. The patient admits to chronic steroid dependency for management of pulmonary fibrosis. As noted but apparently, the patient has been on prednisone for this admission. She has improved clinically and metabolically over the period of time. Gastrointestinal and deep venous thrombosis prophylaxis. We will follow up. Daya Childs MD [facility]
[2017-11-14] MEDS: MethylPREDNISolone 40 mg Vial IVP SCH (10:58)
--- NOTE | 2017-11-14 14:26 | CP.PCM.PN ---
Subjective - Date & Time of Evaluation Date of Evaluation: 11/14/17 Time of Evaluation: 11:30 - Subjective Subjective: Much improved pain on her breasts, no fevers, no discharge, not in distress. Objective - Vital Signs/Intake and Output Vital Signs (last 24 hours): Temp Pulse Resp BP Pulse Ox 98.4 F 57 L 18 114/55 L 97 11/14/17 07:30 11/14/17 07:30 11/14/17 07:30 11/14/17 07:30 11/14/17 07:30 Intake and Output: 11/14/17 11/14/17 06:59 18:59 Intake Total 560 Output Total 3 Balance 557 - Medications Medications: Current Medications Atorvastatin Calcium (Lipitor) 20 mg PO DIN [facility] Last Admin: 11/13/17 17:37 Dose: 20 mg Buspirone HCl (Buspar) 10 mg PO DAILY [facility] PRN Reason: Protocol Last Admin: 11/14/17 10:58 Dose: 10 mg Doxycycline Hyclate (Doryx) 100 mg PO Q12 [facility] PRN Reason: Protocol Stop: 11/18/17 22:01 Last Admin: 11/14/17 10:58 Dose: 100 mg Escitalopram Oxalate (Lexapro) 10 mg PO DAILY [facility] Last Admin: 11/14/17 10:58 Dose: 10 mg Famotidine (Pepcid) 40 mg PO HS [facility] Last Admin: 11/13/17 21:19 Dose: 40 mg Cefepime HCl (Maxipime 1gm) 1 gm in 100 mls @ 100 mls/hr IVPB Q8 [facility] PRN Reason: Protocol Stop: 11/22/17 14:01 Last Admin: 11/14/17 05:29 Dose: 100 mls/hr Insulin Human Regular (Humulin R Low) 0 units SC ACBD [facility] PRN Reason: Protocol Last Admin: 11/14/17 08:33 Dose: Not Given Ondansetron HCl (Zofran Tab) 4 mg PO TID PRN PRN Reason: Nausea/Vomiting Oxycodone/Acetaminophen (Percocet 5/325 Mg Tab) 1 tab PO TID PRN PRN Reason: Pain, moderate (4-7) Stop: 11/15/17 18:01 Pantoprazole Sodium (Protonix Ec Tab) 40 mg PO ACB [facility] Last Admin: 11/14/17 08:35 Dose: 40 mg - Labs Labs: 11/14/17 07:00 11/14/17 07:00 - Constitutional Appears: Chronically Ill - Head Exam Head Exam: NORMAL INSPECTION - ENT Exam ENT Exam: Mucous Membranes Moist - Neck Exam Neck Exam: absent: Meningismus - Respiratory Exam Respiratory Exam: Decreased Breath Sounds - Cardiovascular Exam Cardiovascular Exam: +S1, +S2 - GI/Abdominal Exam GI & Abdominal Exam: Soft. absent: Tenderness Assessment and Plan - Assessment and Plan (Free Text) Plan: Assessment bilateral breast pain probably post-surgery, without evidence of purulent cellulitis in this patient S/P breast surgery POD #6 (mastectomy) anxiety depression PTSD history of interstitial lung disease and pulmonary fibrosis Plan Patient can be switched to PO Doxycycline to complete a 5 day course
--- NOTE | 2017-11-14 16:26 | CP.PCM.DIS ---
<SeaLuna Floridalma - Last Filed: 11/14/17 16:31> Provider - Provider Date of Admission: 11/11/17 17:48 Attending physician: Daya Childs MD Primary care physician: Daya Childs MD Consults: VAZQUEZ - Dr. Logan Guajardo - Dr. Sharon Fischer - Dr. Brijesh Piña Time Spent in preparation of Discharge (in minutes): 40 Diagnosis - Discharge Diagnosis (1) Hx of breast implants, bilateral Status: Acute (2) H/O bilateral mastectomy Status: Acute (3) Anxiety Status: Acute (4) Depression Status: Acute (5) PTSD (post-traumatic stress disorder) Status: Acute (6) Interstitial lung disease Status: Acute (7) Cortisol deficiency Status: Acute (8) Cellulitis Status: Acute (9) Pulmonary fibrosis Status: Acute Hospital Course - Lab Results Lab Results: Micro Results 11/11/17 18:00 Blood Blood Culture - Preliminary NO GROWTH AFTER 48 HOURS Most Recent Lab Values WBC 10.0 10^3/ul (4.5-11.0) 11/14/17 07:00 RBC 4.46 10^6/uL (3.5-6.1) 11/14/17 07:00 Hgb 14.0 g/dL (12.0-16.0) 11/14/17 07:00 Hct 40.8 % (36.0-48.0) 11/14/17 07:00 MCV 91.5 fl (80.0-105.0) 11/14/17 07:00 MCH 31.4 pg (25.0-35.0) 11/14/17 07:00 MCHC 34.3 g/dl (31.0-37.0) 11/14/17 07:00 RDW 12.3 % (11.5-14.5) 11/14/17 07:00 Plt Count 271 10^3/uL (120.0-450.0) 11/14/17 07:00 MPV 10.4 fl (7.0-11.0) 11/14/17 07:00 Gran % 71.1 % (50.0-68.0) H 11/14/17 07:00 Lymph % (Auto) 22.6 % (22.0-35.0) 11/14/17 07:00 Webb % (Auto) 6.0 % (1.0-6.0) 11/14/17 07:00 Eos % (Auto) 0.1 % (1.5-5.0) L 11/14/17 07:00 Baso % (Auto) 0.2 % (0.0-3.0) 11/14/17 07:00 Gran # 7.13 (1.4-6.5) H 11/14/17 07:00 Lymph # (Auto) 2.3 (1.2-3.4) 11/14/17 07:00 Webb # (Auto) 0.6 (0.1-0.6) 11/14/17 07:00 Eos # (Auto) 0.0 (0.0-0.7) 11/14/17 07:00 Baso # (Auto) 0.02 K/mm3 (0.0-2.0) 11/14/17 07:00 pO2 44 mm/Hg (30-55) 11/11/17 17:35 VBG pH 7.37 (7.32-7.43) 11/11/17 17:35 VBG pCO2 54.0 (40-60) 11/11/17 17:35 VBG HCO3 31.2 mmol/l (21-28) H 11/11/17 17:35 VBG Total CO2 32.9 mmol.L (22-28) H 11/11/17 17:35 VBG O2 Sat (Calc) 85.4 % (40-65) H 11/11/17 17:35 VBG Base Excess 4.5 mmol/L (0.0-2.0) H 11/11/17 17:35 VBG Potassium 3.8 mmol/L (3.6-5.2) 11/11/17 17:35 Sodium 139.0 mmol/L (132-148) 11/11/17 17:35 Chloride 105.0 mmol/L (98-107) 11/11/17 17:35 Glucose 108 mg/dl (65-105) H 11/11/17 17:35 Lactate 0.9 mmol/L (0.7-2.1) 11/11/17 17:35 FiO2 21.0 % 11/11/17 17:35 Sodium 141 mmol/L (132-148) 11/14/17 07:00 Potassium 4.1 mmol/L (3.6-5.0) 11/14/17 07:00 Chloride 105 mmol/L (98-107) 11/14/17 07:00 Carbon Dioxide 26 mmol/L (21-33) 11/14/17 07:00 Anion Gap 14 (10-20) 11/14/17 07:00 BUN 16 mg/dL (7-21) 11/14/17 07:00 Creatinine 0.6 mg/dl (0.7-1.2) L 11/14/17 07:00 Est GFR ( Amer) > 60 11/14/17 07:00 Est GFR (Non-Af Amer) > 60 11/14/17 07:00 POC Glucose (mg/dL) 69 mg/dL (65-110) 11/14/17 11:50 Random Glucose 99 mg/dL (70-110) 11/14/17 07:00 Hemoglobin A1c 5.8 % (4.2-6.5) 11/12/17 06:20 Calcium 10.0 mg/dL (8.4-10.5) 11/14/17 07:00 Total Bilirubin 0.5 mg/dL (0.2-1.3) 11/14/17 07:00 AST 23 U/L (14-36) 11/14/17 07:00 ALT 34 U/L (7-56) 11/14/17 07:00 Alkaline Phosphatase 87 U/L (38-126) 11/14/17 07:00 Total Protein 7.2 g/dL (5.8-8.3) 11/14/17 07:00 Albumin 4.1 g/dL (3.0-4.8) 11/14/17 07:00 Globulin 3.1 gm/dL 11/14/17 07:00 Albumin/Globulin Ratio 1.3 (1.1-1.8) 11/14/17 07:00 Triglycerides 55 mg/dL (35-160) 11/12/17 06:20 Cholesterol 222 mg/dL (130-200) H 11/12/17 06:20 LDL Cholesterol Direct 113 mg/dL (0-129) 11/12/17 06:20 HDL Cholesterol 85 mg/dL (29-60) H 11/12/17 06:20 Thyroxine (T4) 6.6 ug/dL (5.5-11.0) 11/14/17 07:00 TSH 3rd Generation 0.32 mIU/mL (0.46-4.68) L 11/14/17 07:00 Cortisol AM Sample 0.9 ug/dL (4.46-22.7) L 11/14/17 07:00 Plasma Cortisol PM 3.66 ug/dL (1.7-14.1) 11/11/17 17:35 Venous Blood Potassium 3.8 mmol/L (3.6-5.2) 11/11/17 17:35 Urine Color Yellow (YELLOW) 11/11/17 17:35 Urine Appearance Clear (CLEAR) 11/11/17 17:35 Urine pH 6.0 (4.7-8.0) 11/11/17 17:35 Ur Specific [place] 1.025 (1.005-1.035) 11/11/17 17:35 Urine Protein Trace mg/dL (<30 mg/dL) H 11/11/17 17:35 Urine Glucose (UA) Negative mg/dL (NEGATIVE) 11/11/17 17:35 Urine Ketones Negative mg/dL (NEGATIVE) 11/11/17 17:35 Urine Blood Negative (NEGATIVE) 11/11/17 17:35 Urine Nitrate Negative (NEGATIVE) 11/11/17 17:35 Urine Bilirubin Negative (NEGATIVE) 11/11/17 17:35 Urine Urobilinogen 0.2 E.U./dL (<1 E.U./dL) 11/11/17 17:35 Ur Leukocyte Esterase Negative Neto/uL (NEGATIVE) 11/11/17 17:35 Urine RBC 0 - 2 /hpf (0-2) 11/11/17 17:35 Urine WBC 0 - 2 /hpf (0-6) 11/11/17 17:35 Ur Epithelial Cells 1 - 3 /hpf (0-5) 11/11/17 17:35 HIV 1&2 Ag/Ab, 4th Gen Nonreactive (Nonreactive) 11/12/17 08:30 Influenza Typ A,B (EIA) Negative for flu a/b (NEGATIVE) 11/11/17 17:35 - Hospital Course Hospital Course: 47 yr female w/ history of adrenal insufficiency, chronic obstructive lung disease, anxiety, depression, PTSD, Breast CA s/p bilateral breast biopsy and bilateral breast reconstruction surgery. Pt was admitted [place] [facility] [place] hypothermia, chills, rigors, and generalized weakness following reconstructive breast surgery. Pt had been steroid dependence due to her history of intersitial lung disease & pulmonary fibrosis. Secondary to the recent physical stressors, Dr. José Luis Piña believed metabolic decompensation is expected and orders given for prednisone 10mg in AM and 5mg in PM given. Pt was treated for cellulitis of bilateral breast w/ IV cefepime. Pt is cleared for discharge home by Infectious disease PO doxycyline. Reviewed: CXR = moderate thoracic dextroscoliosis, WNL CT chest = s/p bilateral breast implants, foci of air seen in L supraclavicular region, uncertain etiology - Date & Time of H&P Date of H&P: 11/14/17 Time of H&P: 11:30 Discharge Exam - Head Exam Head Exam: NORMAL INSPECTION - Eye Exam Eye Exam: EOMI, Normal appearance, PERRL Pupil Exam: NORMAL ACCOMODATION, PERRL - Neck Exam Neck exam: Full Rom - Respiratory Exam Respiratory Exam: Clear to PA & Lateral, NORMAL BREATHING PATTERN - Cardiovascular Exam Cardiovascular Exam: +S1, +S2 - GI/Abdominal Exam GI & Abdominal Exam: Normal Bowel Sounds - Extremities Exam Extremities exam: normal inspection - Back Exam Back exam: NORMAL INSPECTION - Neurological Exam Neurological exam: Alert, CN II-XII Intact, Normal Gait, Oriented x3, Reflexes Normal - Psychiatric Exam Psychiatric exam: Normal Affect, Normal Mood - Skin Additional comments: bilateral breast: skin clean, dry intact, no dimpling, or retraction Bilateral breast folds: steri-strips, clean dry intact Discharge Plan - Discharge Medications Prescriptions: Doxycycline Hyclate 100 mg PO Q12 #10 capsule predniSONE [Prednisone] 10 mg PO DAILY #30 tab predniSONE [predniSONE Tab] 5 mg PO QPM #30 tab - Follow Up Plan Condition: STABLE Disposition: HOME/ ROUTINE Instructions: Heart Healthy Diet, How to Prevent Surgical Site Infections, Flu Vaccine, Cellulitis (DC), Cellulitis (GEN) Referrals: Daya Childs MD [Primary Care Provider] - <Daya Childs - Last Filed: 11/14/17 23:11> Provider - Provider Date of Admission: 11/11/17 17:48 Attending physician: Daya Childs MD Primary care physician: Daya Childs MD Hospital Course - Lab Results Lab Results: Micro Results 11/11/17 18:00 Blood Blood Culture - Preliminary NO GROWTH AFTER 3 DAYS Most Recent Lab Values WBC 10.0 10^3/ul (4.5-11.0) 11/14/17 07:00 RBC 4.46 10^6/uL (3.5-6.1) 11/14/17 07:00 Hgb 14.0 g/dL (12.0-16.0) 11/14/17 07:00 Hct 40.8 % (36.0-48.0) 11/14/17 07:00 MCV 91.5 fl (80.0-105.0) 11/14/17 07:00 MCH 31.4 pg (25.0-35.0) 11/14/17 07:00 MCHC 34.3 g/dl (31.0-37.0) 11/14/17 07:00 RDW 12.3 % (11.5-14.5) 11/14/17 07:00 Plt Count 271 10^3/uL (120.0-450.0) 11/14/17 07:00 MPV 10.4 fl (7.0-11.0) 11/14/17 07:00 Gran % 71.1 % (50.0-68.0) H 11/14/17 07:00 Lymph % (Auto) 22.6 % (22.0-35.0) 11/14/17 07:00 Webb % (Auto) 6.0 % (1.0-6.0) 11/14/17 07:00 Eos % (Auto) 0.1 % (1.5-5.0) L 11/14/17 07:00 Baso % (Auto) 0.2 % (0.0-3.0) 11/14/17 07:00 Gran # 7.13 (1.4-6.5) H 11/14/17 07:00 Lymph # (Auto) 2.3 (1.2-3.4) 11/14/17 07:00 Webb # (Auto) 0.6 (0.1-0.6) 11/14/17 07:00 Eos # (Auto) 0.0 (0.0-0.7) 11/14/17 07:00 Baso # (Auto) 0.02 K/mm3 (0.0-2.0) 11/14/17 07:00 pO2 44 mm/Hg (30-55) 11/11/17 17:35 VBG pH 7.37 (7.32-7.43) 11/11/17 17:35 VBG pCO2 54.0 (40-60) 11/11/17 17:35 VBG HCO3 31.2 mmol/l (21-28) H 11/11/17 17:35 VBG Total CO2 32.9 mmol.L (22-28) H 11/11/17 17:35 VBG O2 Sat (Calc) 85.4 % (40-65) H 11/11/17 17:35 VBG Base Excess 4.5 mmol/L (0.0-2.0) H 11/11/17 17:35 VBG Potassium 3.8 mmol/L (3.6-5.2) 11/11/17 17:35 Sodium 139.0 mmol/L (132-148) 11/11/17 17:35 Chloride 105.0 mmol/L (98-107) 11/11/17 17:35 Glucose 108 mg/dl (65-105) H 11/11/17 17:35 Lactate 0.9 mmol/L (0.7-2.1) 11/11/17 17:35 FiO2 21.0 % 11/11/17 17:35 Sodium 141 mmol/L (132-148) 11/14/17 07:00 Potassium 4.1 mmol/L (3.6-5.0) 11/14/17 07:00 Chloride 105 mmol/L (98-107) 11/14/17 07:00 Carbon Dioxide 26 mmol/L (21-33) 11/14/17 07:00 Anion Gap 14 (10-20) 11/14/17 07:00 BUN 16 mg/dL (7-21) 11/14/17 07:00 Creatinine 0.6 mg/dl (0.7-1.2) L 11/14/17 07:00 Est GFR ( Amer) > 60 11/14/17 07:00 Est GFR (Non-Af Amer) > 60 11/14/17 07:00 POC Glucose (mg/dL) 69 mg/dL (65-110) 11/14/17 11:50 Random Glucose 99 mg/dL (70-110) 11/14/17 07:00 Hemoglobin A1c 5.8 % (4.2-6.5) 11/12/17 06:20 Calcium 10.0 mg/dL (8.4-10.5) 11/14/17 07:00 Total Bilirubin 0.5 mg/dL (0.2-1.3) 11/14/17 07:00 AST 23 U/L (14-36) 11/14/17 07:00 ALT 34 U/L (7-56) 11/14/17 07:00 Alkaline Phosphatase 87 U/L (38-126) 11/14/17 07:00 Total Protein 7.2 g/dL (5.8-8.3) 11/14/17 07:00 Albumin 4.1 g/dL (3.0-4.8) 11/14/17 07:00 Globulin 3.1 gm/dL 11/14/17 07:00 Albumin/Globulin Ratio 1.3 (1.1-1.8) 11/14/17 07:00 Triglycerides 55 mg/dL (35-160) 11/12/17 06:20 Cholesterol 222 mg/dL (130-200) H 11/12/17 06:20 LDL Cholesterol Direct 113 mg/dL (0-129) 11/12/17 06:20 HDL Cholesterol 85 mg/dL (29-60) H 11/12/17 06:20 Thyroxine (T4) 6.6 ug/dL (5.5-11.0) 11/14/17 07:00 TSH 3rd Generation 0.32 mIU/mL (0.46-4.68) L 11/14/17 07:00 Cortisol AM Sample 0.9 ug/dL (4.46-22.7) L 11/14/17 07:00 Plasma Cortisol PM 3.66 ug/dL (1.7-14.1) 11/11/17 17:35 Venous Blood Potassium 3.8 mmol/L (3.6-5.2) 11/11/17 17:35 Urine Color Yellow (YELLOW) 11/11/17 17:35 Urine Appearance Clear (CLEAR) 11/11/17 17:35 Urine pH 6.0 (4.7-8.0) 11/11/17 17:35 Ur Specific [place] 1.025 (1.005-1.035) 11/11/17 17:35 Urine Protein Trace mg/dL (<30 mg/dL) H 11/11/17 17:35 Urine Glucose (UA) Negative mg/dL (NEGATIVE) 11/11/17 17:35 Urine Ketones Negative mg/dL (NEGATIVE) 11/11/17 17:35 Urine Blood Negative (NEGATIVE) 11/11/17 17:35 Urine Nitrate Negative (NEGATIVE) 11/11/17 17:35 Urine Bilirubin Negative (NEGATIVE) 11/11/17 17:35 Urine Urobilinogen 0.2 E.U./dL (<1 E.U./dL) 11/11/17 17:35 Ur Leukocyte Esterase Negative Neto/uL (NEGATIVE) 11/11/17 17:35 Urine RBC 0 - 2 /hpf (0-2) 11/11/17 17:35 Urine WBC 0 - 2 /hpf (0-6) 11/11/17 17:35 Ur Epithelial Cells 1 - 3 /hpf (0-5) 11/11/17 17:35 HIV 1&2 Ag/Ab, 4th Gen Nonreactive (Nonreactive) 11/12/17 08:30 Influenza Typ A,B (EIA) Negative for flu a/b (NEGATIVE) 11/11/17 17:35 - Hospital Course Hospital Course: pt is seen and examined at bed side . looking comfortable . agreed all above . d /d with cyber engineer . chart , labs and meds noted . will f/u
[2017-11-14 16:39] VITALS: BP 120/63; PULSE 63; RESP 17; TEMP 98; O2SAT 98
--- NOTE | 2017-11-14 18:07 | PN ---
ENDOCRINOLOGY FOLLOWUP NOTE LOCATION: Room #569, [address] [place] [address]. 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 She has improved clinically with enhanced sense of well being and subsidence of all the fatigue, generalized body weakness, dizziness, and lightheadedness noted prior to this admission. Her latest chemistry showed a BUN of 16, sodium 141, potassium 4.1, chloride 105, CO2 26, glucose 99, and creatinine 0.6. The repeat serum cortisol level is even amazingly low noted only at 0.9 mcg/dL with the previous level of 2.9, all done in the fasting morning levels as noted and ordered. The repeat thyroid study showed a T4 of 6.6 with a TSH of 0.32 indicative of the so called acute sick euthyroid syndrome with also superimposed TSH suppression from the intercurrent IV steroid therapy as given. So at this time, we will modify her current steroid dosing and discontinue all the IV steroids as ordered. We will switch over to a dual oral steroid replacement therapy with prednisone given as 10 mg in the morning at 08:00 a.m. and 5 mg at 06:00 p.m. as ordered to start today. She will follow with her primary physician for ongoing medical and endocrine followup and evaluation, and has been advised to call me for any dose adjustments as indicated. We will follow and advise accordingly. Ayla Piña MD
== END 2017-11-14 15:30 | disposition home or self-care (01) | DRG 600 ==
LOC: ED 16:02 → ERH 17:48 → 5RNO 20:17
PROVIDERS: ADMIT Internal Medicine; ATTEND Internal Medicine
DX: N61.0 Mastitis without abscess (principal); E27.3 Drug-induced adrenocortical insufficiency; J84.10 Pulmonary fibrosis, unspecified; J44.9 Chronic obstructive pulmonary disease, unspecified; E09.9 Drug or chemical induced diabetes mellitus without complications; F32.9 Major depressive disorder, single episode, unspecified; T38.0X5A Adverse effect of glucocorticoids and synthetic analogues, initial encounter; E07.81 Sick-euthyroid syndrome; K21.9 Gastro-esophageal reflux disease without esophagitis; F41.1 Generalized anxiety disorder; F43.10 Post-traumatic stress disorder, unspecified; Z79.52 Long term (current) use of systemic steroids; Z85.3 Personal history of malignant neoplasm of breast; Z98.82 Breast implant status; Z90.13 Acquired absence of bilateral breasts and nipples; Z96.649 Presence of unspecified artificial hip joint

== ENCOUNTER 2017-12-22 17:25 | Observation (INO) | payer OTHER ==
[2017-12-22 18:59] VITALS: BMI 21.7
[2017-12-22] MEDS ORDERED: Sodium Chloride 0.9% 500 ML IV STA (20:10)
[2017-12-22 20:36] LABS: PH,URINE 7.5 (4.7-8.0); URINE APPEARANCE CLEAR (CLEAR); URINE BILIRUBIN NEGATIVE (NEGATIVE); URINE BLOOD NEGATIVE (NEGATIVE); URINE COLOR YELLOW (YELLOW); URINE GLUCOSE (UA) NEGATIVE (NEGATIVE); URINE LEUKOCYTE ESTERASE NEGATIVE Leu/uL (NEGATIVE); URINE PROTEIN NEGATIVE mg/dL (<30 mg/dL); URINE UROBILINOGEN 0.2 E.U./dL (<1 E.U./dL)
[2017-12-22 21:00] LABS: BASO # 0.03 K/mm3 (0.0-2.0); BASO % 0.3 % (0.0-3.0); EOS % 0.4 % (1.5-5.0); GRAN # 6.74 (1.4-6.5); GRAN % 69.7 % (50.0-68.0); HEMOGLOBIN 14.1 g/dL (12.0-16.0); LYMPH # 2.3 (1.2-3.4); LYMPH % 23.8 % (22.0-35.0); MEAN CELL VOLUME 91.9 fl (80.0-105.0); MEAN CORPUSCULAR HEMOGLOBIN 31.9 pg (25.0-35.0); MEAN CORPUSCULAR HGB CONC 34.7 g/dl (31.0-37.0); MEAN PLATELET VOLUME 10.4 fl (7.0-11.0); MONO # 0.6 (0.1-0.6); MONO % 5.8 % (1.0-6.0); RBC 4.42 10^6/uL (3.5-6.1); RED CELL DISTRIBUTION WIDTH 12.9 % (11.5-14.5); WHITE BLOOD COUNT 9.7 10^3/ul (4.5-11.0)
[2017-12-22 21:06] LABS: INR 0.96 (0.93-1.08); PARTIAL THROMBOPLASTIN TIME 30.7 Seconds (25.1-36.5); PROTHROMBIN TIME 10.9 SECONDS (9.4-12.5)
[2017-12-22 21:15] LABS: ALB/GLOB RATIO 1.5 (1.1-1.8); ALBUMIN 4.2 g/dL (3.0-4.8); ALT/SGPT 31 U/L (7-56); AST/SGOT 27 U/L (14-36); BLOOD UREA NITROGEN 13 mg/dL (7-21); CALCIUM 9.2 mg/dL (8.4-10.5); GFR AFRICAN-AMERICAN > 60; GFR NON-AFRICAN AMERICAN > 60
--- NOTE | 2017-12-22 21:45 | ED PDOC ---
Arrival/HPI - General Chief Complaint: Female Genitourinary Time Seen by Provider: 12/22/17 18:27 Historian: Patient - History of Present Illness Narrative History of Present Illness (Text): 12/22/17 21:42 47-year-old female presents today with hematuria. Patient is a patient of Dr. Marsh. Patient was advised to come to the emergency room for admission as the patient will have a scope tomorrow for evaluation of her hematuria. Patient states 2 years ago she had neurostimulator placed in the bladder and was told to come to the emergency room for evaluation of her painless hematuria. pt denies fever/chills. no cp or sob. no abdominal pain. no n/v/d/c. no other complaints. Past Medical History - Provider Review Nursing Documentation Reviewed: Yes - Travel History Have you recently traveled outside [place] w/in the past 3 mons?: No - Infectious Disease Hx of Infectious Diseases: None - Tetanus Immunization Tetanus Immunization: Up to Date - Cardiac Hx Pacemaker: No - Pulmonary Hx Asthma: Yes Other/Comment: pulmonary fibrosis - Neurological Hx Paralysis: No - HEENT Hx HEENT Disorder: No - Renal Hx Renal Disorder: No - Endocrine/Metabolic Hx Endocrine Disorders: No Hx Diabetes Mellitus Type 2: Yes Other/Comment: Steroid induced hyperglycemia. - Hematological/Oncological Hx Blood Transfusions: No Hx Blood Transfusion Reaction: No - Integumentary Hx Dermatological Disorder: No - Musculoskeletal/Rheumatological Hx Musculoskeletal Disorders: No ("BULGING RIBS") - Gastrointestinal Hx Gastroesophageal Reflux: Yes - Genitourinary/Gynecological Hx Genitourinary Disorders: Yes Other/Comment: bladder neuro stimulator - Psychiatric Hx Emotional Abuse: No Hx Physical Abuse: No Hx Substance Use: No - Surgical History Hx Cardiac Catheterization: Yes (05/12/17) Other/Comment: bilateral breast reconstructive sx - Anesthesia Hx Anesthesia Reactions: Yes (NAUSEA, STATES NEEDS ZOFRAN) Hx Malignant Hyperthermia: No - Suicidal Assessment Feels Threatened In Home Enviroment: No Family/Social History - Physician Review Nursing Documentation Reviewed: Yes Family/Social History: Unknown Family HX Smoking Status: Never Smoked Hx Alcohol Use: No Hx Substance Use: No Hx Substance Use Treatment: No Allergies/Home Meds Allergies/Adverse Reactions: Allergies No Known Allergies Allergy (Verified 12/22/17 18:57) Home Medications: Home Meds Medication Instructions Recorded Confirmed Escitalopram [Lexapro] 10 mg PO DAILY 09/21/16 12/22/17 busPIRone [Buspar] 10 mg PO DAILY 09/21/16 12/22/17 Lansoprazole [Prevacid] 30 mg PO DAILY 04/24/17 12/22/17 Ondansetron HCl [Zofran] 0 mg PO PRN PRN 11/11/17 12/22/17 oxyCODONE/Acetaminophen [Percocet 1 tab PO PRN PRN 11/11/17 12/22/17 5/325 mg Tab] predniSONE [predniSONE Tab] 20 mg PO TID 12/22/17 12/22/17 Review of Systems - Review of Systems Constitutional: absent: Fatigue, Fevers Respiratory: absent: SOB, Cough Cardiovascular: absent: Chest Pain, Palpitations Gastrointestinal: absent: Abdominal Pain, Nausea, Vomiting Genitourinary Female: Hematuria. absent: Dysuria, Frequency, Urine Output Changes, Vaginal Bleeding, Vaginal Discharge Musculoskeletal: absent: Arthralgias, Back Pain Skin: absent: Rash, Pruritis Neurological: absent: Headache, Dizziness Psychiatric: absent: Anxiety, Depression, Suicidal Ideation Physical Exam Vital Signs Reviewed: Yes Vital Signs Temp Pulse Resp BP Pulse Ox 12/22/17 22:17 97.8 F 66 18 116/57 L 99 12/22/17 18:51 98.1 F 70 18 128/79 99 Temperature: Afebrile Blood Pressure: Normal Pulse: Regular Respiratory Rate: Normal Appearance: Positive for: Well-Appearing, Non-Toxic, Comfortable Pain Distress: None Mental Status: Positive for: Alert and Oriented X 3 - Systems Exam Head: Present: Atraumatic Mouth: Present: Moist Mucous Membranes Neck: Present: Normal Range of Motion Respiratory/Chest: Present: Clear to Auscultation, Good Air Exchange. No: Respiratory Distress, Accessory Muscle Use Cardiovascular: Present: Regular Rate and Rhythm, Normal S1, S2. No: Murmurs Abdomen: No: Tenderness, Distention, Peritoneal Signs, Rebound, Guarding Back: Present: Normal Inspection. No: CVA Tenderness, Midline Tenderness, Paraspinal Tenderness Upper Extremity: Present: Normal ROM Lower Extremity: Present: Normal ROM Neurological: Present: GCS=15, Speech Normal Skin: Present: Warm, Dry, Normal Color. No: Rashes Psychiatric: Present: Alert, Oriented x 3 Medical Decision Making ED Course and Treatment: 12/22/17 21:45 47yr old female sent in by dr. marsh for admission. cbc; wnl cmp: k;3.4 pt/inr: wnl ptt: wnl type and screen UA; wnl case discussed with dr. marsh; pt to be admitted to pmd. NPO after midnight. he would like CT abd/pelvis without contrast. CT abd/pelvis; FINDINGS: Limitations: Motion artifact - mild. Lack of intravenous contrast. Lung bases: Minimal atelectasis/scarring. ABDOMEN: Liver: Unremarkable. Gallbladder and bile ducts: No calcified stones. No ductal dilation. Pancreas: Unremarkable. No ductal dilation. Spleen: No splenomegaly. Adrenals: No mass. Kidneys and ureters: No renal calculi. No hydronephrosis. Stomach and bowel: Segmental areas of probable underdistention of LEFT colon. No definite mural thickening. No obstruction. PELVIS: Appendix: Normal caliber. No inflammation. Bladder: Unremarkable. No stones. Reproductive: Hysterectomy. Probable right ovarian follicle. ABDOMEN and PELVIS: Intraperitoneal space: No significant fluid collection. No free air. Bones/joints: Curvature of spine. Probable bone islands. No acute fracture. Soft tissues: Breast implants. Vasculature: Minimal atherosclerotic disease. No aneurysm. Lymph nodes: No pathologically enlarged lymph nodes. Tubes, lines and devices: Stimulator device with lead extending through left sacral foramen. IMPRESSION: 1. No definite CT evidence of urolithiasis. 2. Incidental/non-acute findings are described above pt states she is supposed to take 5mg of hydrocortisone tonight; requesting dosage in er. pt states she take 20mg in the morning, 10mg in the afternoon and 5mg at night. pt states she did not take her 5mg dose and needs it. case discussed with dr. mazariegos accepts observational status admission impression: hematuria, admit observational status to med/surg. - Lab Interpretations Lab Results: 12/22/17 20:29 12/22/17 20:29 Lab Results 12/22/17 20:29: WBC 9.7, RBC 4.42, Hgb 14.1, Hct 40.6, MCV 91.9, MCH 31.9, MCHC 34.7, RDW 12.9, Plt Count 322, MPV 10.4, Gran % 69.7 H, Lymph % (Auto) 23.8, [place] % (Auto) 5.8, Eos % (Auto) 0.4 L, Baso % (Auto) 0.3, Gran # 6.74 H, Lymph # (Auto) 2.3, [place] # (Auto) 0.6, Eos # (Auto) 0.0, Baso # (Auto) 0.03 12/22/17 20:29: Sodium 140, Potassium 3.4 L, Chloride 105, Carbon Dioxide 25, Anion Gap 13, BUN 13, Creatinine 0.5 L, Est GFR ( Amer) > 60, Est GFR ( Non-Af Amer) > 60, Random Glucose 120 H, Calcium 9.2, Total Bilirubin 0.6, AST 27, ALT 31, Alkaline Phosphatase 86, Total Protein 7.0, Albumin 4.2, Globulin 2.8, Albumin/Globulin Ratio 1.5 12/22/17 20:29: PT 10.9, INR 0.96, APTT 30.7 12/22/17 20:25: Blood Type B POSITIVE, Antibody Screen Negative, BBK History Checked Patient has bt 12/22/17 20:20: Urine Color Yellow, Urine Appearance Clear, Urine pH 7.5, Ur Specific [place] 1.020, Urine Protein Negative, Urine Glucose (UA) Negative, Urine Ketones Negative, Urine Blood Negative, Urine Nitrate Negative, Urine Bilirubin Negative, Urine Urobilinogen 0.2, Ur Leukocyte Esterase Negative - RAD Interpretation Radiology Orders: 12/22/17 20:09 ABD & PELVIS W/O PO OR IV CONT [CT] Stat - Medication Orders Current Medication Orders: Discontinued Medications Hydrocortisone (Cortef) 5 mg PO STAT STA Stop: 12/22/17 22:23 Last Admin: 12/22/17 22:41 Dose: 5 mg Sodium Chloride (Sodium Chloride 0.9%) 500 mls @ 999 mls/hr IV .Q31M STA Stop: 12/22/17 20:40 Last Admin: 12/22/17 20:47 Dose: 999 mls/hr eMAR Start Stop Document 12/22/17 20:47 [email or web address] (Rec: 12/22/17 20:47 [email or web address] [id number] OUTREACH ASSISTANT) Intravenous Solution Start Date 12/22/17 Start Time 20:47 End Date 12/22/17 Disposition/Present on Arrival - Present on Arrival Any Indicators Present on Arrival: Yes History of DVT/PE: No History of Uncontrolled Diabetes: Yes Urinary Catheter: No History of Decub. Ulcer: No History Surgical Site Infection Following: None - Disposition Have Diagnosis and Disposition been Completed?: Yes Diagnosis: Hematuria Disposition: HOSPITALIZED Disposition Time: 22:27 Patient Plan: Observation Condition: FAIR Referrals: Rema Rocha DO [Primary Care Provider] - Follow up with primary Forms: LUBB-TEX (Slovak)
--- NOTE | 2017-12-22 22:13 | CT ---
EXAM: CT Abdomen and Pelvis Without Intravenous Contrast CLINICAL HISTORY: 47 years old, female; Signs and symptoms; Other: Hematuria; Prior surgery; Surgery type: Bladder neuro stimulator TECHNIQUE: Axial computed tomography images of the abdomen and pelvis without intravenous contrast. All CT scans at this facility use one or more dose reduction techniques, viz.: automated exposure control; ma/kV adjustment per patient size (including targeted exams where dose is matched to indication; i.e. head); or iterative reconstruction technique. Coronal and sagittal reformatted images were created and reviewed. COMPARISON: CT - ABD PELVIS IV CONTRAST ONLY 2017-04-04 13:06 FINDINGS: Limitations: Motion artifact - mild. Lack of intravenous contrast. Lung bases: Minimal atelectasis/scarring. ABDOMEN: Liver: Unremarkable. Gallbladder and bile ducts: No calcified stones. No ductal dilation. Pancreas: Unremarkable. No ductal dilation. Spleen: No splenomegaly. Adrenals: No mass. Kidneys and ureters: No renal calculi. No hydronephrosis. Stomach and bowel: Segmental areas of probable underdistention of LEFT colon. No definite mural thickening. No obstruction. PELVIS: Appendix: Normal caliber. No inflammation. Bladder: Unremarkable. No stones. Reproductive: Hysterectomy. Probable right ovarian follicle. ABDOMEN and PELVIS: Intraperitoneal space: No significant fluid collection. No free air. Bones/joints: Curvature of spine. Probable bone islands. No acute fracture. Soft tissues: Breast implants. Vasculature: Minimal atherosclerotic disease. No aneurysm. Lymph nodes: No pathologically enlarged lymph nodes. Tubes, lines and devices: Stimulator device with lead extending through left sacral foramen. IMPRESSION: 1. No definite CT evidence of urolithiasis. 2. Incidental/non-acute findings are described above.
[2017-12-23] MEDS ORDERED: Propofol 10 mg/ml Inj (20 ML) ONE (08:47)
[2017-12-23 08:48] VITALS: O2SAT 100
[2017-12-23] MEDS ORDERED: Midazolam 2 MG/2 ML VIAL ONE (08:48)
[2017-12-23] MEDS ORDERED: cefTRIAXone (Rocephin) 1 gm Inj ONE (08:49)
[2017-12-23] MEDS ORDERED: Iohexol 240 (50 ml) ONE (08:49)
--- NOTE | 2017-12-23 08:55 | PCM.URO ---
Urology Progress Note - Objective Lab Studies: Reviewed (gu dx:hematuria gu plans :emergency cystoscopy) Intake & Output: Intake & Output 12/22/17 12/23/17 12/23/17 18:59 06:59 18:59 Intake Total 0 Balance 0 Intake: Oral 0 Other: # Voids Urine, Voided 2 Vital Signs: Vital Signs - 24 hr 12/23/17 12/23/17 12/23/17 00:43 00:55 01:13 Temperature 98.0 F 98.4 F Pulse Rate 70 65 Respiratory 19 19 18 Rate Blood Pressure 119/79 124/56 L O2 Sat by Pulse 99 98 Oximetry 12/23/17 12/23/17 08:08 08:15 Temperature 97.2 F L 98.2 F Pulse Rate 70 62 Respiratory 20 18 Rate Blood Pressure 116/79 135/75 O2 Sat by Pulse 96 100 Oximetry
[2017-12-23] MEDS ORDERED: Sodium Chloride 0.9% 1,000 ML IV SCH (09:30)
--- NOTE | 2017-12-23 10:02 | RAD ---
PROCEDURE: Retrograde pyelogram HISTORY: R/O STONE COMPARISON: TECHNIQUE: Fluoroscopy was provided in the operating room. 4.7 seconds of fluoro time. 0.61 mGy cumulative dose. Five images were submitted FINDINGS: The renal collecting systems and both ureters are unremarkable. The right distal ureter was incompletely visualized. IMPRESSION: As above
[2017-12-23] MEDS ORDERED: Potassium Chloride 20 mEq/15 ml LIQ UD PO STA (11:16)
[2017-12-23 12:32] VITALS: BP 141/73; PULSE 60; RESP 20; TEMP 97.8
--- NOTE | 2017-12-23 23:55 | HP ---
HISTORY OF PRESENT ILLNESS: The patient is 47-year-old patient of , who states multiple years ago, she was diagnosed with pulmonary fibrosis. She was on steroid for quite a long time that caused her urinary incontinence. So she was being followed by Dr. Marsh, had stimulator placed, it was working well for last 2 years, but recently 2 days ago, when she went to the bathroom, she saw blood in the urine. She called Dr. Marsh, who advised her to come to Emergency Room for cystoscopy to be done today. Denies any fever or chills, no history of nausea or vomiting, no hemoptysis, no hematemesis, no recent trauma. PAST MEDICAL HISTORY: Significant for, 1. Noninsulin-dependent diabetes. 2. Hypertension. 3. History of adrenal insufficiency on supplementation. 4. History of depression. 5. History of steroid induced noninsulin-dependent diabetes. 6. Status post bilateral breast reconstruction surgery. SOCIAL HISTORY: She denies smoking, drinking or alcohol use. ALLERGIES: THE PATIENT IS NOT ALLERGIC TO ANY MEDICATION. MEDICATION AT HOME: She is on atorvastatin 20 mg daily, Motrin 600 every 6 p.r.n., Lexapro 10 mg daily. She is on methyl prednisone 20 mg on the morning, 5 at lunch, and 10 at bedtime. She is on BuSpar, Prevacid 30 mg daily. REVIEW OF SYSTEMS: Significant for urinary incontinence. PHYSICAL EXAMINATION: GENERAL: She is awake, alert, oriented, communicative. VITAL SIGNS: She is afebrile, pulse 60, respirations 20, blood pressure 141/73. LUNGS: Bilateral good airflow. No rhonchi or crackles. HEART: S1 and S2 audible. ABDOMEN: Soft, nontender. No rebound. No guarding. She has implant in her left buttock area. No palpable tenderness. LABORATORY DATA: WBC 9.7, hemoglobin 14, hematocrit 40, platelets of 322. PT 10.9, INR 0.96. Chemistry: Sodium 140, potassium 3.4, chloride 105, CO2 of 25, BUN 13, creatinine 0.5, blood sugar of 120. ASSESSMENT AND PLAN: 1. History of urinary incontinence. 2. Status post hematuria. 3. Steroid induced adrenal insufficiency. 4. Steroid induced noninsulin-dependent diabetes. 5. History of pulmonary fibrosis, but later on it was proved by biopsy that it was negative. 6. Hypokalemia. PLAN: The patient had cystoscopy done, unremarkable. According to Dr. Marsh, she can be discharged home today. She will resume her medications as prior to admission.
== END 2017-12-23 15:32 | disposition home or self-care (01) ==
LOC: ED 17:25 → ERH 12-23 00:08 → 3RNO 12-23 01:00
PROVIDERS: ADMIT Internal Medicine; ATTEND Internal Medicine
DX: R31.9 Hematuria, unspecified (principal); R32 Unspecified urinary incontinence; E09.9 Drug or chemical induced diabetes mellitus without complications; E27.3 Drug-induced adrenocortical insufficiency; T38.0X5A Adverse effect of glucocorticoids and synthetic analogues, initial encounter; E87.6 Hypokalemia; J84.10 Pulmonary fibrosis, unspecified; Z79.84 Long term (current) use of oral hypoglycemic drugs
CPT/HCPCS: 52005; 74176; 74420; 80053; 81003; 85025; 85610; 85730; 86850; 86900; 87086; 99284; G0378; J0696; J1720; J2250; J2405; J2704; J3010; J7040; Q9966

== ENCOUNTER 2018-01-17 10:28 | Day surgery (SDC) | payer OTHER ==
[2018-01-16 12:30] VITALS: BMI 21.9
--- NOTE | 2018-01-17 12:54 | CARD ---
APPROVED REPORT EKG Measurement Heart [id number] <Conclusion> Sinus bradycardia Otherwise normal ECG
[2018-01-17] MEDS ORDERED: Propofol 10 mg/ml Inj (20 ML) ONE (13:23)
[2018-01-17] MEDS ORDERED: Midazolam 2 MG/2 ML VIAL ONE (13:24)
[2018-01-17] MEDS ORDERED: Lactated Ringer's 1,000 ML IV SCH (14:15)
[2018-01-17] MEDS ORDERED: Gentamicin 80 mg/2mL Inj. ONE (14:25)
[2018-01-17] MEDS ORDERED: Sodium Chloride 0.9% 1,000 ML IV SCH (14:30)
[2018-01-17] MEDS ORDERED: Gentamicin 80 mg/2mL Inj. IVPB ONE (14:30)
[2018-01-17 15:08] VITALS: TEMP 98; O2SAT 100
[2018-01-17 15:36] VITALS: BP 118/78; PULSE 68; RESP 18
--- NOTE | 2018-01-18 06:32 | OP ---
PROCEDURE DATE: 01/17/2018 PREOPERATIVE DIAGNOSES: Hematuria and voiding dysfunction. POSTOPERATIVE DIAGNOSES: Hematuria and voiding dysfunction, and abnormal bladder mucosa that required biopsy. There is a previous scar due to finding below. COMPLICATIONS: There is no complications. BLOOD LOSS: Less than 3 mL. FINDINGS: Relatively normal bladder mucosa. There is a couple of isolated red areas, and one of them is right next to an area that is an old biopsy scar site, I took multiple pictures of that area, but I do not see anything abnormal really. Query, both kidneys. INDICATIONS: See history and physical for further details. A very pleasant lady with the above history, rule out hematuria . Due to the changes, I did a biopsy sample and sent these both for evaluation. Overall, the patient tolerated the procedure well. Post anesthesia both biopsy and physical exam within normal limits. No real pelvic or rectal mass. The patient tolerated without complication. Manuel Marsh MD
--- NOTE | 2018-01-18 06:59 | PN ---
DATE: 01/17/2018 UROLOGY POSTOPERATIVE NOTE See history and physical and operative report. The patient is in the recovery room in stable condition. She had a biopsy, hematuria, abnormal mucosa noted, but I do not know if she has got a out. There is no real polyp, just reddened area next to the previous biopsy old healed site. Post biopsy, vital signs within normal limits. Patient is in stable condition in the recovery room. Manuel Marsh MD
--- NOTE | 2018-01-18 10:06 | HP ---
DATE OF EXAM: 01/17/2018 UROLOGY ADMISSION HISTORY AND PHYSICAL HISTORY OF PRESENT ILLNESS: This is well complicated history. She is 47 years old, almost 48. She has chronic medical issues. She is on steroids for some kind of lung disease and she is on and off . She also has an issue with her kidneys. She has recurrent infection, "she has voiding dysfunction and hematuria." Reason for this admission history and physical done by Dr. Mark, and also the patient's consult. We actually did a cystoscope for home and she had more episodes of hematuria. She actually called her other urologist. I monitored urologist's idea on a regular basis. The urologist put a [employer] implant and see below. We are going to make sure we keep this is mode properly . Otherwise, her urine has been reasonably controlled except the gross hematuria. She had come to the office, we discussed options. Although, she had a previous cystoscope, she is very worried that something is going on with her. She states she has fevers. She did not have any right now, but previously. She states she has ongoing fevers. So, after we discussed all the options, she is here today for a cysto and a biopsy, I made a total plan; we will follow. PAST MEDICAL AND SURGICAL HISTORY: As listed on the chart. Has no major changes, as per Dr. Mark, recent admission history and physical. REVIEW OF SYSTEMS: Listed above. Very positive review of systems. SOCIAL HISTORY: She is finishing school . She has an older daughter. She is . MEDICATIONS: See the chart. ALLERGIES: SHE IS ON SEVERAL MEDICATIONS INCLUDING LEXAPRO AND SHE IS ON AND OFF STEROID MEDICATIONS. She is not on any blood thinners. PHYSICAL EXAMINATION: GENERAL: A well-nourished female. Currently, in no apparent distress. VITAL SIGNS: Within normal limits. LUNGS: Clear. HEART: Normal S1 and S2. ABDOMEN: Overall soft and nontender. No flank masses. PELVIC: previously as mentioned today. No pelvic or rectal masses detected. NEUROLOGIC: Intact. LABORATORY DATA: See chart. DIAGNOSES: Gross hematuria, voiding dysfunction, pain is resolved. PLAN: We discussed the options actually, we are going to consider to do a cysto. Possible biopsy. See the note below; we actually did do a biopsy. I am very worried about the biopsy in this setting. There were no complications for the procedure and the patient was subsequently discharged home with clear urine. Anyway, so the diagnoses are hematuria, voiding dysfunction and recurrent infection. The plan for now, we are going to do a cystoscopy and further plans to follow. Antibiotic prophylaxis . Manuel Marsh MD
== END 2018-01-17 16:00 | disposition home or self-care (01) ==
LOC: SDS 10:28
PROVIDERS: ATTEND Urology
DX: R31.0 Gross hematuria (principal); J98.4 Other disorders of lung; Z87.440 Personal history of urinary (tract) infections
CPT/HCPCS: 52204; 88305; 93005; J1580; J1720; J2250; J2405; J2704; J3010; J7040; J7120

== ENCOUNTER 2018-01-31 11:43 | Day surgery (SDC) | payer OTHER ==
[2018-01-16 12:30] VITALS: BMI 21.9
[2018-01-31] MEDS ORDERED: Midazolam 2 MG/2 ML VIAL ONE (13:08)
[2018-01-31] MEDS ORDERED: Propofol 10 mg/ml Inj (20 ML) ONE ×2 (13:08→14:01)
[2018-01-31] MEDS ORDERED: Rocuronium 10 mg/ml (5 ml) ONE (13:09)
[2018-01-31] MEDS ORDERED: Bupivacaine 0.5% Inj(30mL) ONE (13:28)
[2018-01-31] MEDS ORDERED: Neostigmine Methylsulfate 3mg/3ml Syringe IV ONE (14:01)
--- NOTE | 2018-01-31 14:40 | PCM.SURG1 ---
Surgeon's Initial Post Op Note - Surgeon's Notes Surgeon: Antony Barbosa MD Manager Banking: Tyra Escobar, PGY-1 Type of Anesthesia: General Endo Pre-Operative Diagnosis: Pelvic pain, hematuria Operative Findings: Adhesions, see op report for details Post-Operative Diagnosis: Intra-abdominal adhesions Operation Performed: Diagnostic laparoscopy with lysis of adhesions Specimen/Specimens Removed: None Estimated Blood Loss: EBL {In ML}: 5 Blood Products Given: N/A Drains Used: No Drains Post-Op Condition: Good Date of Surgery/Procedure: 01/31/18 Time of Surgery/Procedure: 14:39
[2018-01-31] MEDS ORDERED: Oxycodone/Acetaminophen 5/325 mg Tab PO PRN ×2 (14:41→14:42)
[2018-01-31] MEDS ORDERED: Sodium Chloride 0.9% 1,000 ML IV SCH (14:45)
[2018-01-31 15:34] VITALS: RESP 18; TEMP 97.3
[2018-01-31 16:09] VITALS: BP 127/55; PULSE 62; O2SAT 98
[2018-02-01] MEDS ORDERED: Pantoprazole 40 mg EC Tab PO SCH (10:00)
[2018-02-01] MEDS ORDERED: Levothyroxine 50 MCG TAB PO SCH (10:00)
--- NOTE | 2018-02-06 18:25 | OP ---
PROCEDURE DATE: 01/31/2018 PREOPERATIVE DIAGNOSIS: Persistent chronic pelvic pain. POSTOPERATIVE DIAGNOSIS: Persistent chronic pelvic pain with large intestine adhesions. PROCEDURE: Operative laparoscopy with lysis of adhesions. SURGEON: Antony Barbosa MD. TYPE OF ANESTHESIA: General endotracheal. ESTIMATED BLOOD LOSS: Minimal. DESCRIPTION OF PROCEDURE: After informed consent was obtained from the patient, the area of chronic pelvic pain was marked over the abdomen. The patient was brought into the operating room, underwent general endotracheal anesthesia. The patient was prepped and draped in usual sterile fashion. Examination under anesthesia revealed the patient that had a previous hysterectomy, both adnexal areas were felt to be negative. Weighted speculum was inserted. Bladder was catheterized and approximately 70 mL of urine were obtained. Attention was turned to the umbilicus where a subumbilical incision was made, it was brought down to the fascia, and the fascia was opened. Rectus muscle was split. Peritoneum was visualized, grasped with 2 hemostats, opened, and a blunt port trocar was inserted. Insertion of the laparoscope into the pelvic cavity was performed. The examination of the mid and upper abdomen revealed basically no abnormalities. Liver, small bowel, and diaphragm revealed no signs of endometriosis or adhesions. Mid abdominal examination revealed part of the left sigmoid colon fused to the left pelvic wall. Pelvic examination revealed the patient with status post hysterectomy, vault and posterior cul-de-sac were found to be clean, devoid of any signs of endometriosis. Anterior cul-de-sac revealed no signs of endometriosis on bladder junction areas. Broad ligament leaves right and left were found to be negative in regards to endometriosis. Negative also in regards to adhesions. The patient had a second puncture made in the suprapubic area under direct visualization, grasping instrument was inserted that allowed elevation of the sigmoid colon and dissection of the adhesions around the sigmoid colon. No penetration through the colon performed at all. As a note, the patient has a history of Crohn disease and did not have any visual signs of inflammatory lesions noted. Pelvis was irrigated, suction dried, closure was initiated. Pneumoperitoneum was relieved. A 0 Vicryl was used to close the fascial incision. A 4-0 Monocryl was used to close the skin incisions. The patient was awakened and gently sent to the recovery room in stable condition. Antony Barbosa MD [facility] # [id number]
[2018-02-07] MEDS ORDERED: Ergocalciferol 50,000 Intl Units Cap PO SCH (10:00)
== END 2018-01-31 17:00 | disposition home or self-care (01) ==
LOC: SDS 11:43
PROVIDERS: ATTEND Obstetrics & Gynecology Gynecology
DX: K66.0 Peritoneal adhesions (postprocedural) (postinfection) (principal); R10.2 Pelvic and perineal pain
CPT/HCPCS: 44180; 82948; J0131; J1720; J2001; J2250; J2704; J2710; J3010; J7030; J7120

== ENCOUNTER 2018-08-03 18:49 | Emergency (ER) | payer OTHER ==
[2018-08-03 18:50] VITALS: BMI 21.9
== END 2018-08-03 19:55 | disposition left against medical advice (07) ==
LOC: ED 18:49
DX: Z02.89 Encounter for other administrative examinations (principal); R12 Heartburn

== ENCOUNTER 2018-09-05 09:32 | Outpatient (CLI) | payer OTHER | END 2018-09-05 09:33 | disposition home or self-care (01) | LOC: LAB 09:32 ==

== ENCOUNTER 2018-09-20 08:23 | Outpatient (CLI) | payer OTHER | END 2018-09-20 08:24 | disposition home or self-care (01) | LOC: PET-BROA 08:23 ==

== ENCOUNTER 2018-10-16 13:53 | Outpatient (CLI) | payer OTHER | END 2018-10-16 13:54 | disposition home or self-care (01) | LOC: RAD 13:53 | DX: E03.9 Hypothyroidism, unspecified (principal) ==

== ENCOUNTER 2018-10-24 08:01 | Outpatient (CLI) | payer OTHER | END 2018-10-24 08:02 | disposition home or self-care (01) | LOC: PAT 08:01 | DX: R31.29 Other microscopic hematuria (principal); Z01.810 Encounter for preprocedural cardiovascular examination ==

== ENCOUNTER 2018-10-26 09:41 | Day surgery (SDC) | payer OTHER ==
[2018-10-26 10:21] VITALS: BMI 21.9
[2018-10-26 10:24] LABS: INR 0.98; PARTIAL THROMBOPLASTIN TIME 35.3 Seconds (26.9-38.3); PROTHROMBIN TIME 11.1 SECONDS (9.4-12.5)
[2018-10-26] MEDS ORDERED: cefTRIAXone (Rocephin) 1 gm Inj ONE (11:41)
[2018-10-26] MEDS ORDERED: Midazolam 2 MG/2 ML VIAL ONE (11:47)
[2018-10-26] MEDS ORDERED: Propofol 10 mg/ml Inj (20 ML) ONE (11:47)
[2018-10-26] MEDS ORDERED: Lactated Ringer's 1,000 ML IV SCH (12:30)
[2018-10-26 13:12] VITALS: RESP 18; TEMP 96.7
[2018-10-26 13:45] VITALS: BP 126/68; PULSE 69; O2SAT 99
--- NOTE | 2018-11-01 12:36 | OP ---
PROCEDURE DATE: 10/26/2018 PREOPERATIVE DIAGNOSES: Hematuria and urethral mass. POSTOPERATIVE DIAGNOSES: Hematuria and urethral mass. PROCEDURE: Exam under anesthesia, cystoscopy, urethral biopsy, excisional biopsy, and fulguration. COMPLICATIONS: None. ESTIMATED BLOOD LOSS: Less than 10 mL. FINDINGS: There is a scar tissue within the bladder from previous biopsy, but no mass lesions. There is no appreciable abnormalities on the urethral side on the external side where the patient stated she had like a bump. There is some maybe like almost a furuncle, but it is without fluid in it. I will give you a little sample (with a biopsy forceps) and then fulgurated the area . There is a little suspicious to any problem, but stayed actually away from the to make sure there is no pustules or developing and stayed far away from the meatus itself. Overall, the patient tolerated the procedure without complications. INDICATIONS: See history and physical for further details. This is a very pleasant lady with the above history here for the above procedure. DESCRIPTION OF PROCEDURE: After obtaining informed consent, the patient was placed on the table supine. Routine monitors were placed. Time-out was called to confirm the patient positioning. there are no real definite masses, just a little area on the left side near the urethra on the lateral wall. I think it is utmost a furuncle, but it does not seem like it has fluid in it, but I do not feel any other major abnormalities. We did a biopsy and a fulguration of this area just gently to biopsy to get a good grasp of the tissue. We fulgurated gently. I am concerned with the patient because of her history of steroid use in terms of healing, in terms of cauterizing, so I did very, very gentle cautery. excessive bleeding but I rather not, I am worried about tissue given. We inspected the bladder carefully with 30-degree and 70-degree lenses. There was no bladder cancer. There was some scar tissue from previous, but otherwise no abnormalities were detected. At this point, the bladder was emptied. Exam under anesthesia revealed normal external genitalia. The patient tolerated the procedure without complications. Manuel Marsh MD [facility] # [id number]
--- NOTE | 2018-11-01 13:19 | PN ---
DATE: 11/01/2018 UROLOGY IMMEDIATE POSTOP NOTE See the history and physical, see the operative note. SUBJECTIVE: She is resting comfortably. She is in the recovery room. PHYSICAL EXAMINATION: VITAL SIGNS: Within normal limits. I explained to the patient the findings from the procedure. We did a . No Lockett catheters. No other abnormalities are detected. Manuel Marsh MD
--- NOTE | 2018-11-01 20:37 | HP ---
DATE OF EXAM: 10/26/2018 UROLOGY ADMISSION HISTORY AND PHYSICAL REASON FOR ADMISSION: A cystoscopy and for a biopsy of a cortical urethral mass. HISTORY OF PRESENT ILLNESS: The patient is a very pleasant 48-year-old lady who I know quite well. She has voiding dysfunction as a baseline. She had a InterStim with an that is my recommendation. She is doing well from that standpoint. Occasionally, she has some irritated and obstructive complaint, but is no longer incontinent. Since the time I have seen her till now, she also has had multiple medical problems. She initially was on steroids for breathing issues. Now, she has some kind of aphasia and is not able to find words. She has a neurologist that has been seeing her. She is currently on steroids. See below plan that we have done, recommendations from the center director lead teacher regarding the steroid and for preoperative prophylaxis, etc. What she reports is a urethral mass and she is here now for a cystoscopy and a biopsy of this urethral mass. Her financial administration officer or medical doctor requested that she come see us. We discussed options. We discussed through the office. She walked into the hospital here. She wants full anesthesia. She also wants inspection of her bladder with a cystoscope secondary to the fact that she previously had and still has microhematuria. PAST MEDICAL AND SURGICAL HISTORY: As listed on the chart. There is no other interim urology changes, but it is significant and is of the system. REVIEW OF SYSTEMS: Positives as listed above. Again, multiple medical issues are noted. SOCIAL HISTORY: She is currently not working. She was previously trying to finish school. She is here today with her niece. She has 2 daughters in their 20s that are assisting her and are graduating school. MEDICATIONS: In the chart including that she is on steroids. She is on hydrocortisone at about 20 mg per day. PHYSICAL EXAMINATION GENERAL: A well-nourished female, in no apparent distress. VITAL SIGNS: Are within normal limits, included in the chart.. LUNGS: Clear. HEART: Normal S1 and S2. ABDOMEN: Overall soft, nontender. No flank mass appreciated. PELVIC: I will mention now, she has a normal meatus. On the left side, she has what looks like at most a furuncle, it is just a little bump. It does not look like it even has any fluid in it, but this is the area we are going biopsy because that is where she says the discomfort is. The remainder of the physical exam was otherwise unremarkable. LABORATORY DATA: See in the chart. DIAGNOSES: 1. "Urethral mass". 2. Hematuria. 3. Voiding dysfunction. 4. A steroid dependent lady. PLAN: In summary, a very pleasant 48-year-old lady. She is really very pleasant and well mannered. She has been through a lot. She is apparently aphasic. We were able to talk to her and communicate by just slow communication, but it is not quite aphasia. It is some kind of speech disorder that is of unclear etiology. But either way, we were able to communicate despite the patient is alone she is able to find all the words as needed. Yesterday, she is on steroids. I spoke to the center director lead teacher. We are going to plan for a steroid dosing at appropriate doses. We are going to use 100 mg pre and post and we are going to monitor the patient. I did explain to her the benefit of being in the hospital from a steroid crisis, but she is going to want to go home; so, we are going to discuss this further after the procedure. From the Urology standpoint the plan is as follows; 1. Antibody platelets. 2. Cystoscopy. 3. Biopsy and then we will see referring any further plans. ADDENDUM: Again, a biopsy is taken that is very small. It does not really appear to be anything, but at the patient's request I want to make sure that given her history with so many medical things, I do not want to miss any abscesses that are presenting or any masses that are presenting in an unusual way. Given the high dose of steroids my plan is to check the body's response and I am concerned; so therefore, we are going to plan and we did do a biopsy. Manuel Marsh MD
== END 2018-10-26 15:15 | disposition home or self-care (01) ==
LOC: SDS 09:41
PROVIDERS: ATTEND Urology
DX: N36.8 Other specified disorders of urethra (principal); R31.29 Other microscopic hematuria; Z79.52 Long term (current) use of systemic steroids
CPT/HCPCS: 36415; 52214; 85610; 85730; 88305; J0696; J1720; J1885; J2250; J2405; J2704; J2765; J3010; J7120 ×2

== ENCOUNTER → 2019-01-02 | Outpatient (CLI) | payer OTHER | LOC: LAB 08:02 ==

== ENCOUNTER 2019-01-10 06:56 | Day surgery (SDC) | payer OTHER ==
[2019-01-09 10:22] VITALS: BMI 23.8
[2019-01-10 07:30] LABS: BLOOD UREA NITROGEN 15 mg/dL (7-21); CALCIUM 9.1 mg/dL (8.4-10.5); GFR NON-AFRICAN AMERICAN > 60
[2019-01-10] MEDS ORDERED: Potassium Chloride 10 mEq/100 ml PREMIX IVPB ONE (08:36)
[2019-01-10] MEDS ORDERED: cefTRIAXone (Rocephin) 1 gm Inj IVPB ONE (09:38)
[2019-01-10] MEDS ORDERED: HYDROmorphone 0.5 mg/0.5 ml ISec IVP PRN (10:01)
[2019-01-10] MEDS ORDERED: Lactated Ringer's 1,000 ML IV SCH (10:15)
--- NOTE | 2019-01-10 10:41 | RAD ---
Date of service: 01/10/2019 PROCEDURE: Cystogram HISTORY: Hematuria COMPARISON: TECHNIQUE: 15.6 sec of fluoro time. Cumulative dose 3.19 mGy. 8 images submitted FINDINGS: The study shows contrast opacification of the bladder. No obvious filling defects IMPRESSION: As above
[2019-01-10 11:10] VITALS: BP 133/62; PULSE 55; RESP 14; TEMP 96.8; O2SAT 98
--- NOTE | 2019-01-10 19:02 | HP ---
DATE OF EXAM: 01/10/2019 UROLOGY ADMISSION HISTORY AND PHYSICAL REASON FOR ADMISSION: Workup and the possibly for interstitial cystitis. HISTORY OF PRESENT ILLNESS: Ms. Snyder is a very pleasant lady who has underlying voiding dysfunction frequency, underlying hematuria, and multiple other issues. But for today, she is being worked up for the possibly for interstitial cystitis. We are going to do a cystoscopy with hydrodistention both for diagnostic purposes and also for possible therapeutic purposes. I have explained to the patient again it is difficult because providing her medical therapy, she is on so many medications, particularly she is on steroids and it is a challenging spot and I discussed with the patient the risks of more anesthesia, but after discussing those risks with the patient, she is here for a cystoscopy with hydrodistention. PAST MEDICAL AND SURGICAL HISTORY: All listed. There is no other major changes. See many chart notes. She is followed by Endocrinology. REVIEW OF SYSTEMS: Listed above. Others, noncontributory. No other changes. Her neurologic issues are noted, but they are stable. Her medical issues are noted, but they are stable. Respiratory issues all noted. No other changes. MEDICATIONS: See the chart including the prednisone. See the plan listed below regarding steroid management. The review of systems are listed above, noncontributory. SOCIAL HISTORY: Unremarkable. She has daughters. She just celebrated mother's day. Others unremarkable. PHYSICAL EXAMINATION GENERAL: A well-nourished female, in no apparent distress. VITAL SIGNS: Within normal limits, included in the chart. LUNGS: Clear. HEART: Normal S1 and S2. ABDOMEN: Overall soft and nontender. No flank mass appreciated. PELVIC: Deferred until the time of cystoscope, but I will mention now, previously no pelvic or rectal masses. DIAGNOSES: Voiding dysfunction frequency, incomplete bladder emptying. She does not have hematuria. She does not have the classic symptoms of needing to go to the bathroom. She has pain when she has to go to the bathroom and she does not automatically get the relief, but sometimes she does describe symptoms that are similar to interstitial cystitis. After discussing options with the patient and the patient has so many complaints urinary gallo and the medications that we have tried have never helped her, so we are going to bring her here today for a cystostomy with hydrodistention and we are going to see if this will relieve some of her symptoms both diagnostically and therapeutically. We are entertaining the possibility for interstitial cystitis. PLAN: In terms of her steroid management, I am going to be in touch with the rest room attendant. We are going to give her the same dose as that we did the last time and send her home on the same doses and then further plans will follow. I discussed with the patient at great length the risks, benefits, and alternative plans; 1. Antibiotic prophylaxis. 2. Cystoscopy. 3. Hydrodistention. 4. Steroid use. Manuel Marsh MD
--- NOTE | 2019-01-15 11:34 | OP ---
PROCEDURE DATE: 01/10/2019 PREOPERATIVE DIAGNOSES: Voiding dysfunction, frequency, painful urination. POSTOPERATIVE DIAGNOSES: Voiding dysfunction, frequency, painful urination, to rule out an interstitial cystitis, I do not think she definitely has that. It is not ____ cleared, but I do not really can tell. There were no complications. See the picture that I have enclosed in the chart. The patient has no lesion within her bladder. She does have some postop petechiae. INDICATIONS: See history and physical for further details. This is a very pleasant lady with a lot of various complaints and particularly, frequency and urgency and painful bladder, but she does not present as painful bladder that tends to feel more better after she urinates. The classic photo presentation with voiding from cysto and hydrodistention with the possibility for both therapeutic and diagnostic studied. cystoscopy, hydrodistention of the bladder and there were no complications. ESTIMATED BLOOD LOSS: Less than 10 mL. DESCRIPTION OF PROCEDURE: After obtaining informed consent, the patient was laid on the table. Routine monitors were placed. Time-out was called to confirm the patient and positioning. Antibiotic prophylaxis used. The patient was also given preoperative steroid and Zofran. The patient was in the OR, placed on the table. Routine monitors were placed. Time-out was called to confirm the patient and positioning. We introduced the cystoscope via urethra. We inspected the bladder carefully again just to rule out any lesions. There are no visible lesions. Bladder was inspected carefully. all within normal limits, pictures were taken. At this point, the water bottle about 16 cm the table. We then filled up the bladder. It was about 500 mL. I inspected. We also did a cystogram to confirm our positioning. for documentation and we did an empty film. We then inspected the bladder. We took some pictures. There was some redness and some petechiae, but not as classic pictures we had expected. At that point, I then refilled the bladder again until the pressure stopped. stops on its own. We then put a little contrast hooked again to inspect the bladder from x-ray study at that point. ____ very thin. Overall, the patient tolerated the procedure without complications. Bladder was emptied and cystoscope removed. Exam revealed normal external genitalia. No problems . The patient tolerated the procedure without complications. I am going to offer the patient some medications and possible they may improve interstitial cystitis independently, but I do not really know at this point about her correct diagnosis, but may be some of the medications that are similar will benefit the patient anyway. Further plans will follow. I will discuss this with the patient. Manuel Marsh MD
--- NOTE | 2019-01-15 13:35 | PN ---
DATE: 01/15/2019 See the history and physical and operative note. The patient is status post cystoscopy, hydrodistention of the bladder. There were no complications. The patient's vital signs were within normal limits. The findings are ambiguous. There are some petechiae and redness. No other major abnormalities. no lesions were seen. From Urology standpoint, the patient although is without complication, the plan will be for discharge home. Again, of significant, the patient will be on her hydrocortisone. We are going to follow the recommendations of her supervisor [facility] . Manuel Marsh MD
== END 2019-01-10 12:05 | disposition home or self-care (01) ==
LOC: SDS 06:56
PROVIDERS: ATTEND Urology
DX: R30.0 Dysuria (principal); R35.0 Frequency of micturition
CPT/HCPCS: 36415; 52000; 74430; 80048; J0696; J1170; J3480; J7120 ×2